=== PATIENT | male | born 1970 | race Caucasian/White ===

== ENCOUNTER 2020-04-15 21:55 | Emergency (ER) | payer SELFPAY ==
[2020-04-15 21:58] VITALS: BP 142/93; PULSE 90; RESP 18; TEMP 36.5; O2SAT 98; BMI 29.5
[2020-04-15 22:12] VITALS: BP 142/93; PULSE 94; O2SAT 99
--- NOTE | 2020-04-15 22:15 | XR_ITS ---
WS: [id number] Exam: XR ribs LT mn 3V w CXR1V [id number] Date/Time of Exam: 04/15/2020 10:15 PM Reason For Exam: trauma Findings: No acute left rib fracture or pneumothorax noted. No pulmonary or pleural reactive changes are seen. Old left ninth rib fracture noted. XR/XR ribs LT mn 3V w CXR1V [id number] IMPRESSION: 1. No acute left rib fracture or pneumothorax. 2. The lungs are bilaterally clear. Normal cardiomediastinal structures.
--- NOTE | 2020-04-15 22:15 | ED_ITS ---
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 and that his back started hurting again, ribs started hurting and his made him come in MD elicited complaint: other (Rib pain) Pertinent past history: recent trauma Onset (ago): hour(s) Timing: constant and progressively worsening Severity: moderate Similar Symptoms Previously: No Quality: stabbing and aching Radiation: none Exacerbating factors: movement and coughing/sneezing Relieving factors: immobilization Context: trauma Associated symptoms: Reports no associated symptoms; Deny abdominal pain, chills, fever(s), nausea or vomiting Review of Systems Const: Denies: fever(s), chills or body aches Eyes: Denies: change in vision or blurry vision ENMT: Denies: throat pain or nasal congestion Card: Denies: chest pain or dyspnea on exertion Resp: Denies: dyspnea, productive cough or non-productive cough GI: Denies: abdominal pain, nausea or vomiting : Reports: other (Denies any blood in the urine denies any kidney pain); Denies: difficulty urinating Musc: Reports: other (Rib pain left side); Denies: extremity pain Skin/Breast: Denies: rash Neuro: Denies: headache(s) Psych: Denies: anxiety or depression [place]/Lymph: Denies: easy bruising Physical Exam Const: COMMON NORMALS: no acute distress, average body habitus and patient oriented x3 HENMT: COMMON NORMALS: normocephalic HEAD & SCALP: normal to inspection and normocephalic FACE & SINUS: normal facial exam Eye: COMMON NORMALS: conjunctivae normal GENERAL EYE: appearance normal, both eyes and all related structures CONJUNCTIVA: Yes conjunctivae normal Neck/C-Spine: COMMON NORMALS: no JVD Chest: COMMONS NORMALS: normal inspection of the chest CHEST: Yes localized rib tenderness with anteroposterior compression (Left lower ribs no bruising swelling noted tender to the touch) Resp: COMMON NORMALS: normal respiratory effort and clear to auscultation bilaterally AUSCULTATION: clear to auscultation bilaterally Cardio: COMMON NORMALS: no JVD, regular rate and regular rhythm RATE: regular rate RHYTHM: regular rhythm GI: COMMON NORMALS: Normal to inspection, nondistended, normoactive bowel sounds present Extremity: COMMON NORMALS: normal to inspection Neuro: COMMON NORMALS: patient oriented x3 Course Vital Signs: Vital signs: Vital Signs Temperature 97.7 F 04/15/20 21:58 Pulse Rate 90 04/16/20 02:00 Respiratory Rate 16 04/16/20 02:00 Blood Pressure 126/78 04/15/20 23:56 Pulse Oximetry 95 04/16/20 02:00 MDM - Back Pain/Injury MDM Narrative: Medical decision making narrative: pt has never been a smoker and no need for f/u CT. discussed case with Dr. Kam Discharge Plan Discharge Patient Disposition: Home Clinical Impression: Contusion of rib on left side Qualifiers: Encounter type: initial encounter Qualified Code(s): S20.212A - Contusion of left front wall of thorax, initial encounter Condition: Stable Prescriptions: New tramadol 50 mg tablet 50 mg PO Q6H PRN (Reason: pain) Qty: 14 RF: 0 cyclobenzaprine 5 mg tablet 5 mg PO TID PRN (Reason: muscle spasm) Qty: 14 RF: 0 Discharge Orders: Discharge Order (Routine); Ordered 04/16/20 Ordered By: Raffi Powers Referrals: [facility] [Other] Discharge Diet: Usual diet Discharge Activity: Increase activity as tolerated Patient Instructions: Contusion in Adults (ED) Activity Restrictions/Additional Instructions: take meds as directed, use ice to help with pain. follow up with PCP if no improvement. Coding Level of Care Code ED Accountant Certified Public for Daniela Fwd Exam Comprehensive
[2020-04-15] MEDS: ketorolac 60 mg/2 mL INJ IM (22:25)
--- NOTE | 2020-04-15 22:56 | CTR_ITS ---
PROCEDURE INFORMATION: Exam: CT Chest With Contrast Exam date and time: 04/15/2020 11:03 PM Age: 49 years old Clinical indication: Injury or trauma; Other: Hit against cattle panel; Generalized; Blunt trauma (contusions or hematomas); Injury details: Left back/rib pain TECHNIQUE: Imaging protocol: Computed tomography of the chest with intravenous contrast. Radiation optimization: All CT scans at this facility use at least one of these dose optimization techniques: automated exposure control; mA and/or kV adjustment per patient size (includes targeted exams where dose is matched to clinical indication); or iterative reconstruction. Contrast material: OMNI 300; Contrast volume: 95 ml; Contrast route: INTRAVENOUS (IV); COMPARISON: No relevant prior studies available. RADIATION DOSE METRICS: Total DLP (mGy-cm): 1811.61 FINDINGS: Lungs: There is a 5 mm nodule adjacent to the fissure in the right lower lobe on image number 30. For patients at low risk (minimal or absent history of smoking and of other known risk factors), no routine follow-up is indicated. For patients at high risk (history of smoking or of other known risk factors), consider optional CT Chest at 12 months. There is mild atelectasis at the lung bases. Pleural space: Unremarkable. No pneumothorax. No pleural effusion. Heart: Unremarkable. No cardiomegaly. No pericardial effusion. Mediastinal space: There is some soft tissue density in the upper mediastinum anteriorly anterior to the aortic arch which may represent some thymic hyperplasia. Aorta: Density anterior to the root of the aorta likely represents motion artifact. Lymph nodes: There are some calcified prevascular lymph nodes in keeping with old granulomatous disease. Bones/joints: There is mild chronic appearing wedging of T7, T8 and T9. No acute fracture. Soft tissues: Unremarkable. IMPRESSION: 1. Old granulomatous disease. 2. Non-specific pulmonary nodule, follow-up according to Fleischner society guidelines if indicated. 3. Question of thymic hyperplasia. 4. No acute findings in the chest. PROCEDURE INFORMATION: Exam: CT Abdomen And Pelvis With Contrast Exam date and time: 04/15/2020 11:03 PM Age: 49 years old Clinical indication: Injury or trauma; Other: Hit against cattle panel; Generalized; Blunt trauma (contusions or hematomas); Injury details: Left back/rib pain TECHNIQUE: Imaging protocol: Computed tomography of the abdomen and pelvis with intravenous contrast. Radiation optimization: All CT scans at this facility use at least one of these dose optimization techniques: automated exposure control; mA and/or kV adjustment per patient size (includes targeted exams where dose is matched to clinical indication); or iterative reconstruction. Contrast material: OMNI 300; Contrast volume: 95 ml; Contrast route: INTRAVENOUS (IV); COMPARISON: No relevant prior studies available. RADIATION DOSE METRICS: Total DLP (mGy-cm): 1811.61 FINDINGS: Liver: There is no focal abnormality within the liver. Gallbladder and bile ducts: Normal. No calcified stones. No ductal dilation. Pancreas: The pancreas is normal. Spleen: The spleen demonstrates punctate calcifications, consistent with remote granulomatous organism exposure. Adrenal glands: The adrenal glands are normal. Kidneys and ureters: The kidneys are normal. Stomach and bowel: There is no evidence of colitis/diverticulitis. Appendix: A normal appendix is identified. Intraperitoneal space: There is no evidence of free intraperitoneal fluid. Vasculature: Unremarkable. No abdominal aortic aneurysm. Lymph nodes: There are few mildly prominent mesenteric lymph nodes but no adenopathy. Urinary bladder: Unremarkable as visualized. Reproductive: Unremarkable as visualized. Bones/joints: The lumbar spine demonstrates mild degenerative changes at multiple levels. There is mild scoliosis of the lumbar spine concave to the left. Soft tissues: Unremarkable. CT/CT chest abd pel w con* IMPRESSION: No acute findings in the abdomen or pelvis. Radiation Dose CTDIVOL = (mGy): DLP = 1811.61~1811.61 (mGy-cm)
[2020-04-15] MEDS: iohexol 300 mg/mL 100 mL Btl IV (23:30)
[2020-04-15] MEDS: ondansetron 2 mg/ML SDV 2 mL 4 MG IVP (23:51)
[2020-04-15 23:53] VITALS: RESP 16; O2SAT 96
[2020-04-15] MEDS: morphine 4 mg/mL SDV 1 mL IVP (23:53)
[2020-04-15 23:56] VITALS: BP 126/78; PULSE 92; RESP 16; O2SAT 95
[2020-04-16 02:00] VITALS: PULSE 90; RESP 16; O2SAT 95
== END 2020-04-16 06:10 | disposition home or self-care (01) ==
PROVIDERS: Emergency Provider Nurse Practitioner Family
DX: S20.212A Contusion of left front wall of thorax, initial encounter (principal); W23.0XXA Caught, crushed, jammed, or pinched between moving objects, initial encounter
CPT/HCPCS: 12345; 71101; 71260; 74177; 96372; 96374; 96375; 99282; 99283; J1885; J2270; J2405; Q9967

== ENCOUNTER → 2020-05-30 14:20 | Outpatient (BNVA) | payer SELFPAY | PROVIDERS: Visit Provider Nurse Practitioner Family | DX: L02.01 Cutaneous abscess of face (principal) | CPT/HCPCS: 80053; 85025 ==

== ENCOUNTER 2020-06-10 16:48 | Emergency (ER) | payer SELFPAY ==
[2020-06-10 17:24] VITALS: BP 128/83; PULSE 85; RESP 14; TEMP 37.1; O2SAT 97; BMI 31.3
--- NOTE | 2020-06-10 21:45 | CTR_ITS ---
PROCEDURE INFORMATION: Exam: CT Neck With Contrast Exam date and time: 06/10/2020 10:00 PM Age: 49 years old Clinical indication: Abscess, cutaneous; Patient HX: Abscess on RT side of neck x 1 month; Additional info: Neck swelling, ? abscess TECHNIQUE: Imaging protocol: Computed tomography images of the neck with intravenous contrast. Total images: 436 Radiation optimization: All CT scans at this facility use at least one of these dose optimization techniques: automated exposure control; mA and/or kV adjustment per patient size (includes targeted exams where dose is matched to clinical indication); or iterative reconstruction. Contrast material: OMNI 300; Contrast volume: 95 ml; Contrast route: INTRAVENOUS (IV); COMPARISON: No relevant prior studies available. RADIATION DOSE METRICS: Total DLP (mGy-cm): 915.25 FINDINGS: Nasopharynx: Unremarkable. Dental: Poor to non-existent dental hygiene with numerous missing teeth and numerous dental caries. Oropharynx: Unremarkable. No significant tonsillar enlargement. Hypopharynx: Unremarkable. Larynx: Unremarkable. Normal epiglottis. Retropharyngeal space: Unremarkable. Submandibular/Parotid glands: Normal. Glands are normal in size. Thyroid: Tiny 5 mm right thyroid nodule. No follow-up recommended. Lymph nodes: Marginally prominent right submandibular lymph nodes. No visible generalized lymphadenopathy or evidence of suppurative lymphadenitis. Trachea: Visualized trachea is unremarkable. Lungs: Unremarkable as visualized. Evidence of antecedent granulomatous disease. Bones/joints: Degenerative disc disease C6/C7. No visible acute osseous abnormality. Nondisplaced fracture through the angle of the right mandible at the level of the 3rd mandibular molar. Soft tissues: Right submandibular soft tissue neck mass dimensions approximately 41 mm x 23 mm x 32 mm. Heterogenous contrast enhancement. No definite evidence of organized abscess, seroma, or hematoma. Evidence of overlying soft tissue edema. CT/CT neck w con* [id number] IMPRESSION: 1. Nondisplaced fracture through the angle of the right mandible at the level of the 3rd mandibular molar. 2. Right submandibular soft tissue neck mass dimensions approximately 41 mm x 23 mm x 32 mm. No definite evidence of organized abscess, seroma, or hematoma. Evidence of overlying soft tissue edema. 3. Poor to non-existent dental hygiene with numerous missing teeth and numerous dental caries. COMMENTS: Consistent with the [employer]'s Incidental Findings Committee white paper (J Am Lolita Radiol 2015): In patients aged 35 years and older with an incidental thyroid nodule equal to or greater than 1.[address], MRI or extrathyroidal US, further evaluation with dedicated thyroid US is recommended for patients with normal life expectancy and without comorbidities. For smaller nodules without suspicious features, no further evaluation or follow up is recommended. Radiation Dose CTDIVOL = (mGy): DLP = 915.25 (mGy-cm)
[2020-06-10] MEDS: iohexol 300 mg/mL 100 mL Btl IV (22:10)
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
[2020-06-10] MEDS: vancomycin 1,250 MG/250 ML PIGGYBACK 250 MG IV (22:49)
[2020-06-10] MEDS: tetanus-dipt-pertussis 0.5 mL SDV IM (22:53)
[2020-06-10 22:58] VITALS: BP 120/70; PULSE 66; O2SAT 98
[2020-06-10 23:01] LABS: Basophils % 0.4 %; Eosinophils # 0.1 10^3/uL (0.0-0.8); Eosinophils % 1.4 %; Hematocrit 42.1 % (42.0-52.0); Hemoglobin 13.2 g/dL (11.7-16.6); Lymphocytes # 2.1 10^3/uL (0.8-4.8); Mean Corpuscular HGB Conc 31.4 g/dL (30.0-36.0); Mean Corpuscular Hemoglobin 29.5 pg (28.0-34.0); Mean Platelet Volume 9.7 fL (7.4-10.4); Monocytes # 0.9 10^3/uL (0.2-0.9); Monocytes % 9.5 %; Neutrophils # 6.18 10^3/uL (1.8-7.7); Neutrophils % 66.4 %; Nucleated Red Blood Cells % 0 %; Platelet Count 318 10^3/cmm (130-400); Red Blood Count 4.48 10^6/uL (4.1-5.3); Red Cell Distribution Width 12.7 % (12.1-15.1); White Blood Count 9.3 10^3/uL (4.0-10.0)
[2020-06-10 23:18] LABS: Alanine Aminotransferase 17 U/L (0-41); Albumin Level 3.8 g/dL (3.5-5.2); Alkaline Phosphatase 94 IU/L (40-130); Anion Gap 14.1 (5-19); Aspartate Amino Transferase 15 U/L (0-40); Blood Urea Nitrogen 13 mg/dL (6-20); Calcium 8.6 mg/dL (8.5-10.5); Carbon Dioxide 24 mmol/L (22-29); Chloride 102 mmol/L (98-107); Globulin 3.2 g/dL (1.3-4.6); Glucose 103 mg/dL (65-115); Osmolality Calculated 282 mOsm/kg (285-295); Potassium 4.1 mmol/L (3.5-5.1); Sodium 136 mmol/L (136-145); Total Bilirubin 0.2 mg/dL (0.15-1.2)
[2020-06-10 23:21] VITALS: PULSE 74; O2SAT 98
[2020-06-10] MEDS: doxycycline 100 mg Tablet 200 MG PO (23:47)
[2020-06-10] MEDS: acetaminophen 500 mg Tablet 1000 MG PO (23:47)
[2020-06-10] MEDS: ketorolac 30 mg/mL INJ 15 MG IVP (23:48)
[2020-06-11 00:29] VITALS: BP 118/74; PULSE 69; O2SAT 96
[2020-06-11 00:39] VITALS: BP 117/74; PULSE 57; O2SAT 96
== END 2020-06-11 00:45 | disposition home or self-care (01) ==
PROVIDERS: Emergency Provider Nurse Practitioner Family; PCP Nurse Practitioner
DX: L03.211 Cellulitis of face (principal); L02.01 Cutaneous abscess of face; S02.651A Fracture of angle of right mandible, initial encounter for closed fracture; I10 Essential (primary) hypertension; F17.220 Nicotine dependence, chewing tobacco, uncomplicated; Z23 Encounter for immunization; Y00.XXXA Assault by blunt object, initial encounter
CPT/HCPCS: 10060; 12345; 70491; 80053; 85025; 87070; 87075; 87205; 90471; 90715; 96365; 96375; 99283; 99291; J1885; J3370; Q9967

== ENCOUNTER 2020-10-14 13:57 | Emergency (ER) | payer SELFPAY ==
[2020-10-14 14:06] VITALS: BP 138/90; PULSE 82; RESP 18; TEMP 36.2; O2SAT 93; BMI 31.0
--- NOTE | 2020-10-14 15:48 | ED_ITS ---
Documented by User: EDER Cummings 10/15/20 07:14 HPI - Skin/Abscess/Foreign Bdy General: Chief complaint: Skin/Abscess/Foreign Body Stated complaint: Growth on Right Side of Face Time Seen by Provider: 10/14/20 15:48 Source: patient Mode of arrival: ambulatory Limitations: no limitations History of Present Illness: HPI narrative: Patient is a nice 50-year-old male who presents to ED today with a complaint of a large lesion to the right side of his face. Patient tells me approximately 6 to 8 months ago he fractured his mandible. He was supposed to follow-up with oral maxillary surgery however did not. He states following this he subsequently developed a large similar lesion that ended up being incised and drained in our ED. Provider at the time reported a large amount of purulent drainage from the lesion. Wound culture at the time did not grow anything but Gram stain showed: FEW WHITE BLOOD CELLS, MODERATE SMALL GRAM VARIABLE RODS, RARE GRAM POSITIVE COCCI IN PAIRS. Patient states following I&D and antibiotics lesion went away until now when it reappeared 2 days ago. He states lesion is tender. He has pain when he opens his mouth. MD complaint: abscess/boil Onset (ago): day(s) Tetanus up to date: yes Location: face Severity: moderate Pain Consistency: constant Relieving factors: none Exacerbating factors: other (opening mouth) Associated symptoms: Deny chills, fever(s), nausea or vomiting Review of Systems Const: Denies: fever(s), chills, body aches, fatigue or malaise Eyes: Denies: change in vision or photophobia ENMT: Reports: other (reports a feeling of swelling under chin); Denies: throat pain or odynophagia Card: Denies: chest pain Resp: Denies: dyspnea GI: Denies: abdominal pain, nausea or vomiting Musc: Reports: neck pain (abscess); Denies: back pain, extremity pain, extremity swelling, joint pain or joint swelling Skin/Breast: Reports: new lesions Neuro: Denies: headache(s) PFSH ED PFSH: Medical History History of rheumatoid arthritis Hx of essential hypertension Surgical History Hx of knee surgery right Family History Mother Cancer Diabetes Hypertension Father Cancer Diabetes Hypertension Social History Smoking and tobacco status: current every day smoker smokeless tobacco Smokeless tobacco user: chewing tobacco Second hand smoke exposure: Yes Smoking risk assessment/counseling performed?: No Alcohol intake: never Desire information about alcohol rehabilitation?: No Counseling given: No Desire information about substance/drug rehabilitation?: No Counseling given: No Adopted: No Caregiver/support person: No Lives independently: Yes Household members: none Housing: House Marital status: Legally Number of children: 1 service: No Current occupational exposures/hazards: No Physical Exam Const: COMMON NORMALS: no acute distress, patient oriented x3, no limitations and alert GENERAL APPEARANCE: cooperative ORIENTATION/CONSCIOUSNESS: Yes awake, Yes oriented to person, Yes oriented to place and Yes oriented to time HENMT: COMMON NORMALS: normocephalic, atraumatic, hearing grossly normal bilaterally, external ears normal, EAC's normal, TM's normal bilaterally, Normal external nose present, Normal nasal mucous membranes and turbinates present, moist oral mucous membranes and oropharynx normal HEAD & SCALP: normal to inspection, normocephalic and atraumatic FACE & SINUS: other (see below) FACE & SINUS IMAGES: 1. golf ball sized erythematous fluctuant abscess appearing lesion 2. surrounding induration NOSE: Normal external nose present and Normal nasal mucous membranes and turbinates present EXTERNAL EAR: Yes external ears normal EXTERNAL AUDITORY CANAL: EAC's normal TYMPANIC MEMBRANE: TM's normal bilaterally MOUTH: Normal oral and palatal mucosa present, lip normal and tongue normal TEETH & GINGIVA: Yes poor dentition THROAT: posterior oropharynx normal, tonsils normal and uvula midline Neck/C-Spine: COMMON NORMALS: full ROM GENERAL: Yes lymphadenopathy CERVICAL SPINE: Yes cervical ROM normal Resp: COMMON NORMALS: normal respiratory effort Neuro: COMMON NORMALS: patient oriented x3 SENSORIUM/ORIENTATION: Yes alert, Yes oriented to person, Yes oriented to place and Yes oriented to time Skin: NARRATIVE SKIN EXAM: see facial assessment Course Vital Signs: Vital signs: Vital Signs Temperature 97.2 F L 10/14/20 14:06 Pulse Rate 82 10/14/20 14:06 Respiratory Rate 18 10/14/20 14:06 Blood Pressure 138/90 10/14/20 14:06 Pulse Oximetry 93 10/14/20 14:06 MDM - Skin/Abscess/Foreign Bdy MDM Narrative: Medical decision making narrative: Care transferred to [facility] pending CT scan results. Plan for probable I&D. Lab Data: Labs: Lab Results 10/14/20 10/14/20 Range/Units 16:30 16:30 WBC 8.4 (4.0-10.0) 10^3/ uL RBC 5.10 (4.1-5.3) 10^6/u L Hgb 15.3 (11.7-16.6) g/dL Hct 46.1 (42.0-52.0) % MCV 90.4 (80-94) fL MCH 30.0 (28.0-34.0) pg MCHC 33.2 (30.0-36.0) g/dL RDW 12.0 L (12.1-15.1) % Plt Count 325 (130-400) 10^3/c mm MPV 9.7 (7.4-10.4) fL Neut % (Auto) 72.5 % Lymph % (Auto) 18.5 % Clarke % (Auto) 8.0 % Eos % (Auto) 0.2 % Baso % (Auto) 0.4 % Neut # (Auto) 6.09 (1.8-7.7) 10^3/u L Lymph # (Auto) 1.6 (0.8-4.8) 10^3/u L Clarke # (Auto) 0.7 (0.2-0.9) 10^3/u L Eos # (Auto) 0.0 (0.0-0.8) 10^3/u L Baso # (Auto) 0.0 (0.0-0.1) 10^3/u L Nucleated RBC % (a uto) 0 % Nucleated RBCs # 0.0 /100WBC Sodium 136 (136-145) mmol/L Potassium 4.0 (3.5-5.1) mmol/L Chloride 100 (98-107) mmol/L Carbon Dioxide 25 (22-29) mmol/L Anion Gap 15.0 (5-19) BUN 11 (6-20) mg/dL Creatinine 0.7 (0.7-1.2) mg/dL GFR Calculation 118.4 (90-130) mL/min Glucose 129 H (65-115) mg/dL Calculated Osmolal ity 283 L (285-295) mOsm/k g Calcium 8.9 (8.5-10.5) mg/dL Total Bilirubin 0.3 (0.15-1.2) mg/dL AST 15 (0-40) U/L ALT 18 (0-41) U/L Alkaline Phosphata se 82 (40-130) IU/L C-Reactive Protein 15.6 H (0.0-4.9) mg/L Total Protein 7.5 (6.6-8.7) g/dL Albumin 4.3 (3.5-5.2) g/dL Globulin 3.2 (1.3-4.6) g/dL Discharge Plan Discharge Patient Disposition: Home Clinical Impression: Mandibular mass Fracture of mandible Qualifiers: Encounter type: subsequent encounter Fracture type: closed Mandible location: angle Laterality: right Fracture healing: with nonunion Qualified Code(s): S02.651K - Fracture of angle of right mandible, subsequent encounter for fracture with nonunion Condition: Stable Prescriptions: New hydrocodone-acetaminophen 5-325 mg tablet 1 tab PO TID PRN (Reason: pain) Qty: 10 RF: 0 No Action No Known Home Medications RF: 0 Discharge Orders: Discharge ED (Routine); Ordered 10/14/20 Ordered By: Raffi Powers Referrals: Mann Martinez, [facility] [employer] [Primary Care Provider] - Discharge Diet: Usual diet Discharge Activity: Resume usual activity Patient Instructions: Lump/Mass, Opioid Safety Activity Restrictions/Additional Instructions: Follow-up with medical provider as directed. Take medications as prescribed. Return to the ER or your medical provider if condition worsens. Please read and understand discharge instructions. If any questions ask please. Hospital contact you with an appointment for the ear nose throat doc. Is very important that you keep that appointment and follow-up.. Can apply moist heat to area to help with discomfort. Coding Level of Care Code ED Electroneurodiagnostic Technician for Chg Fwd Exam Expanded Problem Focused Documented by User: ANG[facility] V[facility]la 10/14/20 17:39 HPI - Skin/Abscess/Foreign Bdy General: Chief complaint: Skin/Abscess/Foreign Body Stated complaint: Growth on Right Side of Face Time Seen by Provider: 10/14/20 15:48 PFSH ED PFSH: Medical History History of rheumatoid arthritis Hx of essential hypertension Surgical History Hx of knee surgery right Family History Mother Cancer Diabetes Hypertension Father Cancer Diabetes Hypertension Social History Smoking and tobacco status: current every day smoker smokeless tobacco Smokeless tobacco user: chewing tobacco Second hand smoke exposure: Yes Smoking risk assessment/counseling performed?: No Alcohol intake: never Desire information about alcohol rehabilitation?: No Counseling given: No Desire information about substance/drug rehabilitation?: No Counseling given: No Adopted: No Caregiver/support person: No Lives independently: Yes Household members: none Housing: House Marital status: Legally Number of children: 1 service: No Current occupational exposures/hazards: No Physical Exam HENMT: FACE & SINUS IMAGES: 1. golf ball sized erythematous fluctuant abscess appearing lesion 2. surrounding induration Course Vital Signs: Vital signs: Vital Signs Temperature 97.2 F L 10/14/20 14:06 Pulse Rate 82 10/14/20 14:06 Respiratory Rate 18 10/14/20 14:06 Blood Pressure 138/90 10/14/20 14:06 Pulse Oximetry 93 10/14/20 14:06 MDM - Skin/Abscess/Foreign Bdy MDM Narrative: Medical decision making narrative: CT shows heterogeneous mass in subcutaneous fat in the submandibular region . patient still has a fracture of mandible that is not to heal completely does not appear to be an abscess. CBC was normal, CRP was elevated consistent with possible diagnosis. Follow-up was made with the ear nose throat for removal of this mass and possible biopsy patient was strongly encouraged to keep appointment this time. Lab Data: Labs: Lab Results 10/14/20 10/14/20 Range/Units 16:30 16:30 WBC 8.4 (4.0-10.0) 10^3/ uL RBC 5.10 (4.1-5.3) 10^6/u L Hgb 15.3 (11.7-16.6) g/dL Hct 46.1 (42.0-52.0) % MCV 90.4 (80-94) fL MCH 30.0 (28.0-34.0) pg MCHC 33.2 (30.0-36.0) g/dL RDW 12.0 L (12.1-15.1) % Plt Count 325 (130-400) 10^3/c mm MPV 9.7 (7.4-10.4) fL Neut % (Auto) 72.5 % Lymph % (Auto) 18.5 % Clarke % (Auto) 8.0 % Eos % (Auto) 0.2 % Baso % (Auto) 0.4 % Neut # (Auto) 6.09 (1.8-7.7) 10^3/u L Lymph # (Auto) 1.6 (0.8-4.8) 10^3/u L Clarke # (Auto) 0.7 (0.2-0.9) 10^3/u L Eos # (Auto) 0.0 (0.0-0.8) 10^3/u L Baso # (Auto) 0.0 (0.0-0.1) 10^3/u L Nucleated RBC % (a uto) 0 % Nucleated RBCs # 0.0 /100WBC Sodium 136 (136-145) mmol/L Potassium 4.0 (3.5-5.1) mmol/L Chloride 100 (98-107) mmol/L Carbon Dioxide 25 (22-29) mmol/L Anion Gap 15.0 (5-19) BUN 11 (6-20) mg/dL Creatinine 0.7 (0.7-1.2) mg/dL GFR Calculation 118.4 (90-130) mL/min Glucose 129 H (65-115) mg/dL Calculated Osmolal ity 283 L (285-295) mOsm/k g Calcium 8.9 (8.5-10.5) mg/dL Total Bilirubin 0.3 (0.15-1.2) mg/dL AST 15 (0-40) U/L ALT 18 (0-41) U/L Alkaline Phosphata se 82 (40-130) IU/L C-Reactive Protein 15.6 H (0.0-4.9) mg/L Total Protein 7.5 (6.6-8.7) g/dL Albumin 4.3 (3.5-5.2) g/dL Globulin 3.2 (1.3-4.6) g/dL Discharge Plan Discharge Patient Disposition: Home Clinical Impression: Mandibular mass Fracture of mandible Qualifiers: Encounter type: subsequent encounter Fracture type: closed Mandible location: angle Laterality: right Fracture healing: with nonunion Qualified Code(s): S02.651K - Fracture of angle of right mandible, subsequent encounter for fracture with nonunion Condition: Stable Prescriptions: New hydrocodone-acetaminophen 5-325 mg tablet 1 tab PO TID PRN (Reason: pain) Qty: 10 RF: 0 No Action No Known Home Medications RF: 0 Discharge Orders: Discharge ED (Routine); Ordered 10/14/20 Ordered By: Raffi Powers Referrals: Mann Martinez FNP-C [Primary Care Provider] - Discharge Diet: Usual diet Discharge Activity: Resume usual activity Patient Instructions: Lump/Mass, Opioid Safety Activity Restrictions/Additional Instructions: Follow-up with medical provider as directed. Take medications as prescribed. Return to the ER or your medical provider if condition worsens. Please read and understand discharge instructions. If any questions ask please. Hospital contact you with an appointment for the ear nose throat doc. Is very important that you keep that appointment and follow-up.. Can apply moist heat to area to help with discomfort. Coding Level of Care Code ED Electroneurodiagnostic Technician for Daniela Fwd Exam Expanded Problem Focused
--- NOTE | 2020-10-14 15:56 | CTR_ITS ---
PROCEDURE INFORMATION: Exam: CT Neck With Contrast Exam date and time: 10/14/2020 4:20 PM Age: 50 years old Clinical indication: Condition or disease; Other: Large R mandibular abscess/induration TECHNIQUE: Imaging protocol: Computed tomography images of the neck with contrast. Radiation optimization: All CT scans at this facility use at least one of these dose optimization techniques: automated exposure control; mA and/or kV adjustment per patient size (includes targeted exams where dose is matched to clinical indication); or iterative reconstruction. Contrast material: OMNI 300; Contrast volume: 95 ml; Contrast route: INTRAVENOUS (IV); COMPARISON: CT neck w con* [id number] 06/10/2020 10:00 PM RADIATION DOSE METRICS: Total DLP (mGy-cm): 787.58 FINDINGS: Nasopharynx: Unremarkable. Dental: There are multiple dental caries and periapical dental abscesses. This was also present on the prior scan and has not significantly changed. Oropharynx: Unremarkable. No significant tonsillar enlargement. Hypopharynx: Unremarkable. Larynx: Unremarkable. Normal epiglottis. Retropharyngeal space: Unremarkable. Submandibular/Parotid glands: Normal. Glands are normal in size. Thyroid: Normal. No enlarged or calcified nodules. Lymph nodes: There are cervical lymph nodes measuring less than 10 mm in long axis bilaterally. No grossly enlarged lymph nodes. Trachea: Visualized trachea is unremarkable. Lungs: Unremarkable as visualized. Bones/joints: There is also a fracture of the angle of the mandible on the right with sclerosis and healing when compared to the prior scan. There is incomplete bony union. Soft tissues: There is a large soft tissue mass in the subcutaneous fat in the right submandibular region laterally. It is heterogeneous in density with areas of hypodensity. It is not fluid density. It measures 3.1 x 2.4 cm on axial images. This is similar to prior scan. Craniocaudad dimension of 3.0 cm is decreased from prior scan when it measured 4.0 cm in craniocaudad dimension. There is thickening of the overlying skin and the adjacent platysma. There are streaky inflammatory densities in the adjacent subcu fat. CT/CT neck w con* [id number] IMPRESSION: 1. 3.1 x 2.4 x 3.0 cm heterogeneous mass in the subcutaneous fat in the right submandibular region laterally. This was present on the prior scan. It is slightly smaller in size. There are adjacent inflammatory findings. The differential diagnosis includes recurrent or residual phlegmon. This has been present for at least 4 months and the possibility of underlying neoplasm cannot be excluded. 2. Extensive dental disease, unchanged from prior scan. 3. Subacute fracture of the angle of the mandible on the right with incomplete union. Radiation Dose CTDIVOL = (mGy): DLP = 787.58 (mGy-cm)
[2020-10-14] MEDS: iohexol 300 mg/mL 100 mL Btl IV (16:37)
[2020-10-14 16:40] LABS: Basophils % 0.4 %; Eosinophils % 0.2 %; Hematocrit 46.1 % (42.0-52.0); Hemoglobin 15.3 g/dL (11.7-16.6); Lymphocytes # 1.6 10^3/uL (0.8-4.8); Lymphocytes % 18.5 %; Mean Corpuscular HGB Conc 33.2 g/dL (30.0-36.0); Mean Corpuscular Volume 90.4 fL (80-94); Mean Platelet Volume 9.7 fL (7.4-10.4); Monocytes # 0.7 10^3/uL (0.2-0.9); Neutrophils # 6.09 10^3/uL (1.8-7.7); Neutrophils % 72.5 %; Nucleated Red Blood Cells % 0 %; Platelet Count 325 10^3/cmm (130-400); White Blood Count 8.4 10^3/uL (4.0-10.0)
[2020-10-14] MEDS: vancomycin 1,000 MG in sodium chloride 0.9% 250 ML 250 MG IV (17:11)
[2020-10-14 17:35] LABS: Alanine Aminotransferase 18 U/L (0-41); Albumin Level 4.3 g/dL (3.5-5.2); Alkaline Phosphatase 82 IU/L (40-130); Aspartate Amino Transferase 15 U/L (0-40); Blood Urea Nitrogen 11 mg/dL (6-20); C Reactive Protein 15.6 mg/L (0.0-4.9); Calcium 8.9 mg/dL (8.5-10.5); Carbon Dioxide 25 mmol/L (22-29); Chloride 100 mmol/L (98-107); Globulin 3.2 g/dL (1.3-4.6); Glomerular Filtration Rate 118.4 mL/min (90-130); Glucose 129 mg/dL (65-115); Osmolality Calculated 283 mOsm/kg (285-295); Sodium 136 mmol/L (136-145); Total Bilirubin 0.3 mg/dL (0.15-1.2); Total Protein 7.5 g/dL (6.6-8.7)
--- NOTE | 2020-10-15 08:42 | DCPLANNER ---
Addendum entered by Kathy Coreas 10/16/20 10:02: La from ENT, notified caseworker intake that Dr. Ashley does not see mandible fractures. dog races manager called patient and informed patient that caseworker intake was unable to make the referral to ENT, due to patient having a mandible fracture. dog races manager offered to make a follow up appointment for patient with primary care, so that primary care can make a referral to a oral maxillary surgeon. Patient stated that he has an appointment with his primary care physician on 10.17.20. Original Note: dog races manager had message to schedule a follow up appointment for patient with, Dr. Ashley, ENT. dog races manager emailed patients information to Magdalena Tovar and Samantha at [facility] General Surgery, Ears Nose and Throat. Patients information will be printed and reviewed. Clinic will call patient with appointment information.
== END 2020-10-14 17:52 | disposition home or self-care (01) ==
PROVIDERS: Physician Assistant; Emergency Provider Nurse Practitioner Family; PCP Nurse Practitioner
DX: R22.9 Localized swelling, mass and lump, unspecified (principal); S02.651A Fracture of angle of right mandible, initial encounter for closed fracture; I10 Essential (primary) hypertension; F17.220 Nicotine dependence, chewing tobacco, uncomplicated; X58.XXXA Exposure to other specified factors, initial encounter
CPT/HCPCS: 70491; 80053; 85025; 86140; 96365; 99283; J3370; J7050; Q9967

== ENCOUNTER 2020-10-28 09:31 | Outpatient (CLI) | payer SELFPAY ==
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
== END 2020-10-28 09:32 | disposition home or self-care (01) ==
PROVIDERS: PCP Nurse Practitioner; Visit Provider Specialist
DX: R68.84 Jaw pain (principal)
CPT/HCPCS: 70330

== ENCOUNTER 2020-11-26 11:04 | Outpatient (CLI) | payer SELFPAY ==
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
== END 2020-11-26 11:05 | disposition home or self-care (01) ==
LOC: RADSHAW 11:07
PROVIDERS: PCP Nurse Practitioner; Visit Provider Specialist
DX: R68.84 Jaw pain (principal); Z87.81 Personal history of (healed) traumatic fracture
CPT/HCPCS: 70336

== ENCOUNTER 2021-02-04 14:06 | Emergency (ER) | payer SELFPAY ==
[2021-02-04 14:31] VITALS: BP 126/91; PULSE 95; RESP 18; TEMP 37.2; O2SAT 97; BMI 32.5
--- NOTE | 2021-02-04 14:40 | W.ED.SKABFB ---
HPI - Skin/Abscess/Foreign Bdy General: Chief complaint: Skin/Abscess/Foreign Body Stated complaint: SORE ON FACE Time Seen by Provider: 02/04/21 14:40 History of Present Illness: HPI narrative: 50-year-old male patient comes in with tenderness and swelling to the right facial cheek. Patient appears well. Patient appears no acute distress. Patient denies any difficulty of swallowing. Review of Systems General: Reports: 10 or more systems reviewed and unremarkable except in HPI and below Skin/Breast: Reports: other (Right facial swelling.) PFSH ED PFSH: Medical History History of rheumatoid arthritis Hx of essential hypertension Surgical History Hx of knee surgery right Family History Mother Cancer Diabetes Hypertension Father Cancer Diabetes Hypertension Social History Smoking and tobacco status: current every day smoker smokeless tobacco Smokeless tobacco user: chewing tobacco Second hand smoke exposure: Yes Smoking risk assessment/counseling performed?: No Alcohol intake: never Desire information about alcohol rehabilitation?: No Counseling given: No Desire information about substance/drug rehabilitation?: No Counseling given: No Adopted: No Caregiver/support person: No Lives independently: Yes Household members: none Housing: House Marital status: Legally Number of children: 1 service: No Current occupational exposures/hazards: No Physical Exam Const: COMMON NORMALS: no acute distress and patient oriented x3 GENERAL APPEARANCE: cooperative HENMT: COMMON NORMALS: normocephalic and Normal external nose present HEAD & SCALP: normal to inspection and normocephalic NOSE: Normal external nose present MOUTH: Normal oral and palatal mucosa present Eye: GENERAL EYE: appearance normal, both eyes and all related structures Neck/C-Spine: COMMON NORMALS: full ROM Lymph: LYMPHATIC: no lymphadenopathy noted Chest: COMMONS NORMALS: normal inspection of the chest Resp: COMMON NORMALS: normal respiratory effort EFFORT & INSPECTION: Yes able to speak in complete sentences Cardio: COMMON NORMALS: regular rate and regular rhythm RATE: regular rate RHYTHM: regular rhythm GI: COMMON NORMALS: non-tender Extremity: COMMON NORMALS: normal to inspection Neuro: COMMON NORMALS: patient oriented x3 and moves all extremities Psych: COMMON NORMALS: mental status grossly normal and cooperative Skin: NARRATIVE SKIN EXAM: 5 cm area of redness to the right facial cheek. Central 2 cm area of fluctuance with swelling. Procedures Abscess I/D Site: face Side (if applicable): right Local Anesthetic: lidocaine 1% and with epi Amount of anesthesia used (mL): 1 Technique: incised with #11 blade Amount of fluid expressed (mL): 30 Irrigation: No Packing used?: none Complications: pain Course Vital Signs: Vital signs: Vital Signs Temperature 99.0 F 02/04/21 14:31 Pulse Rate 95 02/04/21 14:31 Respiratory Rate 18 02/04/21 14:31 Blood Pressure 126/91 02/04/21 14:31 Pulse Oximetry 97 02/04/21 14:31 MDM - Skin/Abscess/Foreign Bdy MDM Narrative: Medical decision making narrative: Patient comes in with a fluctuant area to the right facial cheek. On exam airway is intact. Patient is able to swallow. Posterior pharynx shows no significant asymmetry or swelling. Vital signs are normal. Differential diagnosis includes facial abscess, periapical abscess, cellulitis. Reviewed exam with patient recommended incision and drainage of site. Patient agreed to plan. Fluctuant area was opened and a large amount of purulent drainage was expressed from the area. Patient tolerated well. Patient did have some significant pain with incision and drainage. Patient did have relief after drainage. Patient will be started on doxycycline 100 mg twice a day for the next 10 days. Reviewed exam with patient with recommendations for follow-up or return to the ER. Patient reported understanding and agreed to plan. Discharge Plan Discharge Patient Disposition: Home Clinical Impression: Abscess of face Condition: Stable Prescriptions: New doxycycline monohydrate 100 mg capsule 100 mg PO BID 10 Days Qty: 20 RF: 0 No Action cephalexin [Keflex] 750 mg capsule 750 mg PO Q12H Qty: 20 RF: 0 chlorhexidine gluconate [Peridex] 0.12 % mouthwash 15 ml buccal BID Qty: 118 RF: 5 Discharge Orders: Discharge ED (Routine); Ordered 02/04/21 Ordered By: Ryan Soares Referrals: Mann Martinez, [employer] [Primary Care Provider] - Discharge Diet: Usual diet Discharge Activity: Increase activity as tolerated Patient Instructions: Abscess Incision and Drainage (ED), Opioid Safety Activity Restrictions/Additional Instructions: Use a warm moist pack to the area. Take antibiotic as directed. Drink plenty of water with medication. Use acetaminophen and ibuprofen for pain. Follow-up with primary care as needed. Return to the ED for new concerns. Coding Level of Care Code ED Ux Engineer for Daniela Calle
[2021-02-04] MEDS: doxycycline 100 mg Tablet PO (14:54)
--- NOTE | 2021-02-04 15:25 | PC.NURSE ---
Standby assist with Fany LAB DIRECTOR, patient tolerates procedure without complaint. Clean dry dressing in place after procedure.
[2021-02-04 15:27] VITALS: BP 107/72; PULSE 72; RESP 16; TEMP 36.4; O2SAT 97
== END 2021-02-04 15:32 | disposition home or self-care (01) ==
PROVIDERS: Emergency Provider Nurse Practitioner Family; PCP Nurse Practitioner
DX: L02.01 Cutaneous abscess of face (principal); I10 Essential (primary) hypertension; F17.220 Nicotine dependence, chewing tobacco, uncomplicated
CPT/HCPCS: 10060; 99283

== ENCOUNTER 2021-04-02 17:41 | Emergency (ER) | payer SELFPAY ==
[2021-04-02 18:47] VITALS: BP 124/86; PULSE 71; RESP 16; TEMP 36.5; O2SAT 98; BMI 33.2
--- NOTE | 2021-04-02 20:12 | ED_ITS ---
HPI - Animal Bite General: Chief Complaint: Animal Bite Stated Complaint: BEE STING/HEAD: WEAK, NAUSEA Time Seen by Provider: 04/02/21 19:56 History of Present Illness: HPI narrative: Patient is a 50-year-old male comes to the ED after a wasp sting. Wasp sting occurred this afternoon. He said a red wasp stung his left congregation of head. Denies any past allergic reactions to stings and has never had any anaphylactic reaction in his past. Since staying he develo ped some diarrhea, nausea and a feeling of generalized weakness. Denies any lip, tongue swelling, throat swelling, shortness of breath or vomiting. Associated symptoms: Deny chills, fever(s) or headache(s) Review of Systems Const: Reports: fatigue; Denies: fever(s) or chills Eyes: Denies: change in vision or eye discomfort ENMT: Denies: throat pain, odynophagia, nasal discharge or nasal congestion Card: Denies: chest pain, palpitations, edema, swelling of feet/ankles, dyspnea on exertion or orthopnea Resp: Denies: dyspnea, productive cough or non-productive cough GI: Reports: nausea and diarrhea; Denies: abdominal pain, vomiting, constipation or hematochezia : Denies: flank pain, difficulty urinating, dysuria or hematuria Musc: Denies: neck pain, back pain or extremity swelling Skin/Breast: Reports: other (wasp sting to left side of head.); Denies: rash or new lesions Neuro: Denies: headache(s), numbness in extremities or weakness in extremities All/Imm: Denies: throat swelling, tongue swelling or facial swelling PFSH ED PFSH: Medical History History of rheumatoid arthritis Hx of essential hypertension Surgical History Hx of knee surgery right Family History Mother Cancer Diabetes Hypertension Father Cancer Diabetes Hypertension Social History Smoking and tobacco status: current every day smoker smokeless tobacco Smokeless tobacco user: chewing tobacco Second hand smoke exposure: Yes Smoking risk assessment/counseling performed?: No Alcohol intake: never Desire information about alcohol rehabilitation?: No Counseling given: No Desire information about substance/drug rehabilitation?: No Counseling given: No Adopted: No Caregiver/support person: No Lives independently: Yes Household members: none Housing: House Marital status: Legally Number of children: 1 service: No Current occupational exposures/hazards: No Physical Exam Const: COMMON NORMALS: no acute distress, patient oriented x3, healthy appearing and alert GENERAL APPEARANCE: cooperative and comfortable HENMT: COMMON NORMALS: normocephalic HEAD & SCALP: normocephalic and other (Left temporal-small nodule superior to ear from sting.-no erythema) MOUTH: Normal oral and palatal mucosa present, lip normal and tongue normal THROAT: posterior oropharynx normal and uvula midline Eye: COMMON NORMALS: Equal, round and reactive pupils present PUPIL: Yes Equal, round and reactive pupils present Neck/C-Spine: COMMON NORMALS: supple GENERAL: Yes normal visual inspection Resp: COMMON NORMALS: normal respiratory effort, No retractions, No use of accessory muscles and clear to auscultation bilaterally AUSCULTATION: clear to auscultation bilaterally Cardio: COMMON NORMALS: regular rate, regular rhythm, S1 normal heart sound present, S2 normal heart sound present, No gallops present (Cardio), No clicks present (Cardio), No murmurs present (Cardio) and Peripheral pulses 2+ throughout RATE: regular rate RHYTHM: regular rhythm HEART SOUNDS: S1 normal heart sound present and S2 normal heart sound present PERIPHERAL PULSES: Peripheral pulses 2+ throughout GI: COMMON NORMALS: Normal to inspection, nondistended, normoactive bowel sounds present, Soft to palpation, non-tender and no masses PALPATION: Yes Soft to palpation : COMMON NORMALS: Yes no CVA tenderness BLADDER/KIDNEY EXAM: Yes no CVA tenderness Back/Pelvis: COMMON NORMALS: no CVA tenderness Extremity: COMMON NORMALS: normal to inspection Neuro: COMMON NORMALS: patient oriented x3 and moves all extremities SENSORIUM/ORIENTATION: Yes alert Skin: GENERAL SKIN EXAM: dry skin Course Vital Signs: Vital signs: Vital Signs Temperature 97.7 F 04/02/21 18:47 Pulse Rate 69 04/02/21 20:56 Respiratory Rate 18 04/02/21 21:39 Blood Pressure 118/80 04/02/21 20:56 Pulse Oximetry 95 04/02/21 20:56 MDM - Animal Bite MDM Narrative: Medical decision making narrative: Patient is a 50-year-old male comes to the ED after a wasp sting on left side of head. After staying he has had some nausea, diarrhea and generalized weakness/fatigue. Denies any history of any anaphylactic reactions or any allergic reactions. Denies any trouble breathing. Vitals are stable. Patient appears in no acute distress or pain. He has no lip, tongue swelling or shortness of breath. Lungs are clear to auscultation bilaterally. Patient was given a dose of IM Solu-Medrol and 50 mg of Benadryl. Patient says he is feeling a lot better and he was watched for over an hour while here in the ED. Patient was stable for discharge home and sent home with a prescription for prednisone. Return to ED precautions given. Follow-up with PCP in 5 to 7 days for reevaluation. Patient understood and agree with plan. Discharge Plan Discharge Patient Disposition: Home Clinical Impression: Sting, wasp Qualifiers: Encounter type: initial encounter Injury intent: accidental or unintentional Qualified Code(s): T63.461A - Toxic effect of venom of wasps, accidental (unintentional), initial encounter Condition: Stable Prescriptions: New prednisone 20 mg tablet 20 mg PO BID 5 Days Qty: 10 RF: 0 No Action cephalexin [Keflex] 750 mg capsule 750 mg PO Q12H Qty: 20 RF: 0 chlorhexidine gluconate [Peridex] 0.12 % mouthwash 15 ml buccal BID Qty: 118 RF: 5 Discharge Orders: Discharge ED (Routine); Ordered 04/02/21 Ordered By: Wilfredo Samayoa Referrals: Mann Martinez, [employer] MANAGER-C [Primary Care Provider] - Discharge Diet: Regular Discharge Activity: Resume usual activity Patient Instructions: Insect Bite or Sting (ED), General Allergic Reaction (ED) Activity Restrictions/Additional Instructions: Follow-up with medical provider as directed in 7 to 10 days for reevaluation. Take medications as prescribed. You can also take some Benadryl nightly to help with any allergic reaction symptoms as well. Return to the ER or your medical p rovider if condition worsens. Please read and understand discharge instructions. Thank you for choosing [facility] for your healthcare needs today. Please realize this is an emergency room and that we are providing you with a medical screening exam and this may not be complete and all inclusive of all the testing and or work up that you may need to determine your ailment or severity of your illness. It is very important that you follow up as instructed or that you return to the Emergency Department should you have concerns or if your condition changes or worsens in any way. Coding Level of Care Code ED Educational Psychology Professor for Daniela Fwdeena Exam Comprehensive
[2021-04-02] MEDS: diphenhydrAMINE 50 mg Capsule PO (20:20)
[2021-04-02 20:56] VITALS: BP 118/80; PULSE 69; RESP 18; O2SAT 95
[2021-04-02 21:39] VITALS: RESP 18
== END 2021-04-02 21:40 | disposition home or self-care (01) ==
PROVIDERS: Emergency Provider Physician Assistant; PCP Nurse Practitioner
DX: T63.461A Toxic effect of venom of wasps, accidental (unintentional), initial encounter (principal); I10 Essential (primary) hypertension; F17.220 Nicotine dependence, chewing tobacco, uncomplicated
CPT/HCPCS: 96372; 99283; J2930; Q0163

== ENCOUNTER 2021-07-26 16:02 | Emergency (ER) | payer SELFPAY ==
[2021-07-26 17:14] VITALS: BP 120/81; PULSE 82; RESP 18; TEMP 36.7; O2SAT 97; BMI 36.9
--- NOTE | 2021-07-26 20:32 | ED_ITS ---
HPI - General Adult General: Chief complaint: General Medical Stated complaint: fall, right arm pain Time Seen by Provider: 07/26/21 20:32 History of Present Illness: 50-year-old male patient comes in with right elbow pain. 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 Patient reports slipping and falling this morning but did not injure his elbow but this evening the pain and discomfort has started to the right elbow with movement. Patient denies any chronic medical problems. Patient appears well. Onset (ago): hour(s) Location: upper extremity Radiation: non-radiation Severity: mild Relieving factors: rest Exacerbating factors: movement Associated symptoms: Reports no associated symptoms Review of Systems Musc: Reports: joint pain (Right elbow) PFS ED PFSH: Medical History History of rheumatoid arthritis Hx of essential hypertension Surgical History Hx of knee surgery right Family History Mother Cancer Diabetes Hypertension Father Cancer Diabetes Hypertension Social History Smoking and tobacco status: current every day smoker smokeless tobacco Smokeless tobacco user: chewing tobacco Second hand smoke exposure: Yes Smoking risk assessment/counseling performed?: No Alcohol intake: never Desire information about alcohol rehabilitation?: No Counseling given: No Desire information about substance/drug rehabilitation?: No Counseling given: No Adopted: No Caregiver/support person: No Lives independently: Yes Household members: none Housing: House Marital status: Legally Number of children: 1 service: No Current occupational exposures/hazards: No Physical Exam Const: COMMON NORMALS: alert Neck/C-Spine: COMMON NORMALS: full ROM Resp: COMMON NORMALS: normal respiratory effort Cardio: COMMON NORMALS: Peripheral pulses 2+ throughout PERIPHERAL PULSES: Peripheral pulses 2+ throughout Extremity: RIGHT UPPER EXTREMITY: Yes elbow joint (Tenderness is noted to the lateral epicondyle, mild swelling) Right elbow: Yes inspection, Yes palpation, Yes ROM and Yes neurovascular exam Neuro: SENSORIUM/ORIENTATION: Yes alert Psych: COMMON NORMALS: cooperative Skin: COMMON NORMALS: no rashes or lesions noted GENERAL SKIN EXAM: no rashes or lesions noted Course Vital Signs: Vital signs: Vital Signs Temperature 98.1 F 02/05/22 17:14 Pulse Rate 82 07/26/21 17:14 Respiratory Rate 18 07/26/21 17:14 Blood Pressure 120/81 07/26/21 17:14 Pulse Oximetry 97 07/26/21 17:14 MDM - General Adult Medical Decision Making 50-year-old male patient comes in with pain to the right elbow. Patient reports slipping this morning and catching himself but did not think he injured his elbow. Since then patient has had increasing pain and stiffness to the right elbow. On exam patient has mild decreased extension of the elbow but otherwise normal range of motion. Distal sensation and pulses are intact. Patient does have tenderness over the lateral epicondyles. Differential diagnosis includes elbow sprain, tendinitis, epicondylitis. Suspect more of a tendinitis due to patient's repetitive work versus actual injury. No need for x-ray was noted. We will start patient on some prednisone 60 mg today and then 40 mg daily for the next 5 days. Patient will be given some meloxicam to help further with pain and inflammation. Patient was also recommended to use acetaminophen throughout the day for further pain control. Patient reported understanding of care plan need for follow-up or return to the ER. Discharge Plan Discharge Patient Disposition: Home Clinical Impression: Right elbow tendinitis Condition: Stable Prescriptions: New meloxicam 15 mg tablet 15 mg PO DAILY Qty: 14 0RF prednisone 20 mg tablet 20 mg PO BID 5 Days Qty: 10 0RF Discontinued cephalexin [Keflex] 750 mg capsule 750 mg PO Q12H Qty: 20 0RF chlorhexidine gluconate [Peridex] 0.12 % mouthwash 15 ml buccal BID Qty: 118 5RF Discharge Orders: Discharge ED (Routine); Ordered 07/26/21 Ordered By: Ryan Soares Referrals: Mann Martinez, ENVIRONMENTAL HEALTH AND SAFETY MANAGER-C [Primary Care Provider] - Discharge Diet: Usual diet Discharge Activity: Increase activity as tolerated Patient Instructions: Musculoskeletal Pain (ED) Activity Restrictions/Additional Instructions: Home and rest. Activity as tolerated. Use medication as prescribed. Use acetaminophen 1000 mg every 8 hours for further pain relief. Drink plenty of water with prednisone and meloxicam. Follow-up with primary care for further instruction. Return to the ER for new concerns. Coding Level of Care Code ED Senior Stock Plan Administrator for Daniela Calle
[2021-07-26] MEDS: acetaminophen 500 mg Tablet 1000 MG PO (20:48)
[2021-07-26] MEDS: predniSONE 20 mg Tablet 60 MG PO (20:48)
[2021-07-26 21:01] VITALS: BP 126/88; PULSE 88; RESP 16; O2SAT 98
== END 2021-07-26 21:02 | disposition home or self-care (01) ==
PROVIDERS: Emergency Provider Nurse Practitioner Family; PCP Nurse Practitioner
DX: M77.8 Other enthesopathies, not elsewhere classified (principal); I10 Essential (primary) hypertension; F17.220 Nicotine dependence, chewing tobacco, uncomplicated
CPT/HCPCS: 99283; J7512

== ENCOUNTER 2021-11-13 14:54 | Emergency (ER) | payer SELFPAY ==
[2021-11-13 15:10] VITALS: BP 122/68; PULSE 91; RESP 16; TEMP 36.8; O2SAT 95
--- NOTE | 2021-11-13 16:11 | W.ED.EXTPRO ---
HPI - Extremity Problem General: Chief complaint: Extremity Injury, Upper Stated complaint: Right Should Pain Time Seen by Provider: 11/13/21 15:39 History of Present Illness: Patient is a 31-year-old male comes to the ED with pain on the right shoulder. Symptoms started 4 days ago. He denies any injury or trauma but says he woke up with pain. Most of his pain is in his right shoulder blade that radiates down his arm. He rates the pain a 9 out of 10. Pain worsens with right arm movement. Associated symptoms: Deny chest pain, fever(s) or rash Review of Systems Const: Denies: fever(s), chills or fatigue Eyes: Denies: change in vision or eye discomfort ENMT: Denies: throat pain, odynophagia, nasal discharge or nasal congestion Card: Denies: chest pain, palpitations, edema, swelling of feet/ankles, dyspnea on exertion or orthopnea Resp: Denies: dyspnea, productive cough or non-productive cough GI: Denies: abdominal pain, nausea, vomiting, diarrhea, constipation or hematochezia : Denies: flank pain, difficulty urinating, dysuria or hematuria Musc: Reports: extremity pain (right shoulder); Denies: neck pain, back pain or extremity swelling Skin/Breast: Denies: rash or new lesions Neuro: Denies: headache(s), numbness in extremities or weakness in extremities PFSH ED PFSH: Medical History History of rheumatoid arthritis Hx of essential hypertension Surgical History Hx of knee surgery right Family History Mother Cancer Diabetes Hypertension Father Cancer Diabetes Hypertension Social History Smoking and tobacco status: current every day smoker smokeless tobacco Smokeless tobacco user: chewing tobacco Second hand smoke exposure: Yes Smoking risk assessment/counseling performed?: No Alcohol intake: never Desire information about alcohol rehabilitation?: No Counseling given: No Desire information about substance/drug rehabilitation?: No Counseling given: No Adopted: No Caregiver/support person: No Lives independently: Yes Household members: none Housing: House Marital status: Legally Number of children: 1 service: No Current occupational exposures/hazards: No Physical Exam Const: COMMON NORMALS: patient oriented x3 and alert GENERAL APPEARANCE: cooperative HENMT: COMMON NORMALS: normocephalic HEAD & SCALP: normocephalic MOUTH: Normal oral and palatal mucosa present THROAT: posterior oropharynx normal and uvula midline Neck/C-Spine: COMMON NORMALS: supple GENERAL: Yes normal visual inspection Resp: COMMON NORMALS: normal respiratory effort, No retractions, No use of accessory muscles and clear to auscultation bilaterally AUSCULTATION: clear to auscultation bilaterally Cardio: COMMON NORMALS: regular rate, regular rhythm, S1 normal heart sound present, S2 normal heart sound present, No gallops present (Cardio), No clicks present (Cardio), No murmurs present (Cardio) and Peripheral pulses 2+ throughout RATE: regular rate RHYTHM: regular rhythm HEART SOUNDS: S1 normal heart sound present and S2 normal heart sound present PERIPHERAL PULSES: Peripheral pulses 2+ throughout GI: COMMON NORMALS: Normal to inspection, nondistended, normoactive bowel sounds present, Soft to palpation, non-tender and no masses PALPATION: Yes Soft to palpation : COMMON NORMALS: Yes no CVA tenderness BLADDER/KIDNEY EXAM: Yes no CVA tenderness Back/Pelvis: COMMON NORMALS: no CVA tenderness Extremity: COMMON NORMALS: normal to inspection NARRATIVE EXTREMITY EXAM: Muscular tenderness over right subscapular region. Neuro: COMMON NORMALS: patient oriented x3 and moves all extremities SENSORIUM/ORIENTATION: Yes alert Skin: GENERAL SKIN EXAM: dry skin Course Vital Signs: Vital signs: Vital Signs Temperature 98.3 F 11/13/21 15:10 Pulse Rate 72 11/13/21 17:03 Respiratory Rate 18 11/13/21 17:03 Blood Pressure 122/78 11/13/21 17:03 Pulse Oximetry 95 11/13/21 17:03 MDM - Extremity (Nontraumatic) Medical Decision Making Patient is a 51-year-old male comes to the ED with right shoulder and arm pain. Denies any injury or trauma to cause pain. Vitals are stable. Exam of patient shows some right subscapular muscle tenderness. Neurovascular intact to right arm. The rest of exam is benign. Patient was diagnosed with muscle strain of his right scapular region and was discharged home with a prescription for a muscle relaxer and Celebrex for pain. Follow-up with PCP in the next week for reevaluation. Return to ED precautions given. Patient understood and agreed with plan. Discharge Plan Discharge Patient Disposition: Home Clinical Impression: Muscle strain of right scapular region Qualifiers: Encounter type: initial encounter Qualified Code(s): S46.911A - Strain of unspecified muscle, fascia and tendon at shoulder and upper arm level, right arm, initial encounter Condition: Stable Prescriptions: New cyclobenzaprine 10 mg tablet 10 mg PO BID PRN (Reason: muscle spasms and pain) Qty: 20 0RF Celebrex 100 mg capsule 100 mg PO BID PRN (Reason: pain) Qty: 30 0RF No Action meloxicam 15 mg tablet 15 mg PO DAILY Qty: 14 0RF Discharge Orders: Discharge ED (Routine); Ordered 11/13/21 Ordered By: Wilfredo Samayoa Referrals: Mann Martinez FNP-C [Primary Care Provider] - Discharge Diet: Regular Discharge Activity: Increase activity as tolerated Patient Instructions: Shoulder Sprain (ED), Shoulder Pain (ED) Activity Restrictions/Additional Instructions: Follow-up with medical provider as directed. Wear shoulder sling for the next couple days to allow for healing. Make sure to remove arm from sling multiple times a day to perform some range of motion exercises to prevent frozen shoulder. Take medications as prescribed. return to the ER or your medical provider if condition worsens. Please read and understand discharge instructions. Thank you for choosing [facility] for your healthcare needs today. Please realize this is an emergency room and that we are providing you with a medical screening exam and this may not be complete and all inclusive of all the testing and or work up that you may need to determine your ailment or severity of your illness. It is very important that you follow up as instructed or that you return to the Emergency Department should you have concerns or if your condition changes or worsens in any way. Coding Level of Care Code ED Piano Regulator for Daniela Calle Exam Comprehensive
[2021-11-13] MEDS: HYDROcodone-acetaminophen 7.5-325 mg Tablet 1 TAB PO (16:14)
[2021-11-13] MEDS: orphenadrine 30 mg/mL Inj 2 mL 60 MG IM (16:15)
[2021-11-13 17:03] VITALS: BP 122/78; PULSE 72; RESP 18; O2SAT 95
== END 2021-11-13 17:04 | disposition home or self-care (01) ==
PROVIDERS: Emergency Provider Physician Assistant; PCP Nurse Practitioner
DX: S46.911A Strain of unspecified muscle, fascia and tendon at shoulder and upper arm level, right arm, initial encounter (principal); X58.XXXA Exposure to other specified factors, initial encounter
CPT/HCPCS: 96372; 99283; J2360

== ENCOUNTER → 2021-11-19 14:18 | Outpatient (BNVA) | payer SELFPAY | PROVIDERS: PCP Nurse Practitioner; Visit Provider Nurse Practitioner | DX: M54.2 Cervicalgia (principal); M25.511 Pain in right shoulder | CPT/HCPCS: 72040; 73030 ==

== ENCOUNTER 2021-12-15 20:18 | Emergency (ER) | payer SELFPAY ==
--- NOTE | 2021-12-15 20:22 | CTR_ITS ---
PROCEDURE INFORMATION: Exam: CT Head Without Contrast Exam date and time: 12/15/2021 8:55 PM Age: 51 years old Clinical indication: Injury or trauma; Blunt trauma (contusions or hematomas); Patient HX: Witnessed fall. Patient fell backwards onto floor at home. Patient non verbal with eyes closed during exam. TECHNIQUE: Imaging protocol: Computed tomography of the head without contrast. Radiation optimization: All CT scans at this facility use at least one of these dose optimization techniques: automated exposure control; mA and/or kV adjustment per patient size (includes targeted exams where dose is matched to clinical indication); or iterative reconstruction. COMPARISON: MR TMJ wo con [id number] 11/26/2020 11:52 AM RADIATION DOSE METRICS: Total DLP (mGy-cm): 971.59 FINDINGS: Brain: Mild prominence of the sulci consistent with diffuse atrophy. No mass effect or midline shift. Mild periventricular and subcortical white matter low-attenuation consistent with chronic small vessel ischemic changes. No evidence of acute intracranial hemorrhage. Cerebral ventricles: Ventricular prominence proportional to sulci. No hydrocephalus. Paranasal sinuses: No significant or acute abnormality. No air-fluid levels. Mastoid air cells: No acute abnormality. No significant mastoid effusion. Bones/joints: No acute osseous abnormality. No acute fracture. Soft tissues: No significant soft tissue abnormalities. CT/CT head wo con* [id number] IMPRESSION: Mild atrophy and chronic/remote ischemic changes without evidence of superimposed acute infarct, hemorrhage, mass-effect or acute intracranial injury.
--- NOTE | 2021-12-15 20:22 | CTR_ITS ---
PROCEDURE INFORMATION: Exam: CT Cervical Spine Without Contrast Exam date and time: 12/15/2021 8:58 PM Age: 51 years old Clinical indication: Injury or trauma; Blunt trauma; Patient HX: Witnessed fall. Patient fell backwards onto floor at home. Patient non verbal with eyes closed during exam. TECHNIQUE: Imaging protocol: Computed tomography of the cervical spine without contrast. Radiation optimization: All CT scans at this facility use at least one of these dose optimization techniques: automated exposure control; mA and/or kV adjustment per patient size (includes targeted exams where dose is matched to clinical indication); or iterative reconstruction. COMPARISON: CR XR cervical spine 3V* [id number] 11/19/2021 2:19 PM RADIATION DOSE METRICS: Total DLP (mGy-cm): 730.62 FINDINGS: Bones/joints: Cervical vertebra appear intact with normal vertebral body height. Grossly normal cervical alignment. Multilevel spondylosis with degenerative endplate spurring. Discs/Spinal canal/Neural foramina: Multilevel disc space narrowing and posterior disc osteophyte complexes, particularly at C5-C6 and C6-C7. Moderate lower cervical spinal stenosis and moderate to severe bilateral C6-C7 foraminal stenosis. Lungs: No significant or acute abnormality of the visualized lung apices. Soft tissues: No significant soft tissue abnormalities. CT/CT cervical spin wo con* [id number] IMPRESSION: 1. No evidence of acute fracture or subluxation. 2. Cervical spondylosis and degenerative changes as described.
--- NOTE | 2021-12-15 20:23 | ECG_ITS ---
[facility] Test Date: 2021-12-15 Pat Name: Ari Silvestre Department: Room: Gender: Male Paper [employer] Supervisor: : 1970 Requested By: Parrish Hinton Order Number: [id number] Charles MD: Alfred Corrales M.D. Measurements Intervals [place]ler Rate: 81 P: 23 NV: 169 QRS: -40 QRSD: 115 T: 38 QT: 368 QTc: 428 Interpretive Statements SINUS RHYTHM LEFT AXIS DEVIATION [QRS AXIS < -30] INCOMPLETE RIGHT BUNDLE BRANCH BLOCK [90+ ms QRS DURATION, TERMINAL R IN V1/V2, 40+ ms S IN I/aVL/V4/V5/V6] POSSIBLE LATERAL MYOCARDIAL INFARCTION , OF INDETERMINATE AGE [30 ms Q WAVE IN I/aVL/V5/V6] TYPE 2 BRUGADA PATTERN (NON-DIAGNOSTIC) [COVED/SADDLEBACK ST ELEVATION > 0.1mV IN 2 OF V1-3] Compared to ECG 07/02/2014 11:58:15;Left-axis deviation now present Incomplete right bundle-branch block now present.ST (T wave) deviation now present Sinus bradycardia no longer present.Myocardial infarct finding still present Electronically Signed On 12-16-2021 20:05:08 CDT by Alfred Corrales M.D. [email or web address]
[2021-12-15 20:26] LABS: Glucose Point of Care 90 mg/dL (70-110)
[2021-12-15 20:29] VITALS: BP 160/113; PULSE 83; RESP 19; TEMP 36.4; O2SAT 96; BMI 33.4
[2021-12-15 20:32] VITALS: BP 156/108; PULSE 84; RESP 18; O2SAT 96
--- NOTE | 2021-12-15 20:36 | XRR_ITS ---
PROCEDURE INFORMATION: Exam: XR Chest Exam date and time: 12/15/2021 8:41 PM Age: 51 years old Clinical indication: Other: Syncope TECHNIQUE: Imaging protocol: Radiologic exam of the chest. Views: 1 view. COMPARISON: CR (CHEST, ) 12/15/2021 8:25 PM FINDINGS: Lungs: Poor inspiratory effort with some crowding of pulmonary markings and possible accentuation of the apparent heart size. Mild peribronchial thickening and/or mild perihilar linear markings consistent with bronchitis and/or viral pneumonitis and/or reactive airway disease and/or atypical pulmonary interstitial edema. Pleural spaces: Unremarkable. No pleural effusion. No pneumothorax. Heart/Mediastinum: See Lungs finding. Bones/joints: Unremarkable. Other findings: Patient rotation to the right. XR/XR chest 1V portable [id number] IMPRESSION: 1. Poor inspiratory effort with some crowding of pulmonary markings and possible accentuation of the apparent heart size. 2. Mild peribronchial thickening and/or mild perihilar linear markings consistent with bronchitis and/or viral pneumonitis and/or reactive airway disease and/or atypical pulmonary interstitial edema.
[2021-12-15 20:41] LABS: Basophils % 0.4 %; Eosinophils # 0.1 10^3/uL (0.0-0.8); Hematocrit 46.9 % (42.0-52.0); Hemoglobin 16.1 g/dL (11.7-16.6); Lymphocytes # 1.8 10^3/uL (0.8-4.8); Lymphocytes % 25.3 %; Mean Corpuscular HGB Conc 34.3 g/dL (30.0-36.0); Mean Corpuscular Hemoglobin 31.1 pg (28.0-34.0); Mean Corpuscular Volume 90.5 fl (80-94); Mean Platelet Volume 9.7 fL (7.4-10.4); Monocytes # 0.7 10^3/uL (0.2-0.9); Monocytes % 9.9 %; Neutrophils # 4.46 10^3/uL (1.8-7.7); Nucleated Red Blood Cells % 0 %; Platelet Count 300 10^3/cmm (130-400); Red Blood Count 5.18 10^6/uL (4.1-5.3); Red Cell Distribution Width 12.5 % (12.1-15.1); White Blood Count 7.1 10^3/uL (4.0-10.0)
[2021-12-15 21:02] VITALS: BP 149/106; PULSE 74; RESP 17; O2SAT 97
--- NOTE | 2021-12-15 21:04 | ED_ITS ---
HPI - Syncope General: Chief Complaint: Syncope Stated Complaint: heat exhaustion Time Seen by Provider: 12/15/21 20:22 Source: patient Mode of arrival: ambulatory Limitations: no limitations History of Present Illness: 51-year-old male has a history of alcoholism that states he was cooking chicken today in a hot kitchen and had a syncopal event. He had passed out and fell backwards and hit his head hard. He had a prolonged loss consciousness after that as well. Denies any chest pain does have a headache currently. No vomiting no diarrhea. No other injuries noted. Associated symptoms: Reports headache(s); Deny abdominal pain, fever(s) or nausea Review of Systems Const: Denies: fever(s), chills, body aches or change in appetite Eyes: Denies: blurry vision or eye discomfort ENMT: Denies: throat pain or dental pain Card: Reports: syncope Resp: Denies: dyspnea GI: Denies: abdominal pain, nausea, vomiting or diarrhea : Denies: dysuria Musc: Denies: neck pain or back pain Skin/Breast: Denies: rash Neuro: Reports: headache(s) Psych: Denies: depression Rolando/Lymph: Denies: easy bruising All/Imm: Denies: urticaria PFSH ED PFSH: Medical History History of rheumatoid arthritis Hx of essential hypertension Surgical History Hx of knee surgery right Family History Mother Cancer Diabetes Hypertension Father Cancer Diabetes Hypertension Social History Smoking and tobacco status: never smoked Second hand smoke exposure: Yes Smoking risk assessment/counseling performed?: No Alcohol intake: never Desire information about alcohol rehabilitation?: No Counseling given: No Desire information about substance/drug rehabilitation?: No Counseling given: No Adopted: No Caregiver/support person: No Lives independently: Yes Household members: none Housing: House Marital status: Legally Number of children: 1 service: No Current occupational exposures/hazards: No Physical Exam 2 Const: COMMON NORMALS: patient oriented x3 and healthy appearing HENMT: COMMON NORMALS: normocephalic and atraumatic HEAD & SCALP: normocephalic and atraumatic Eye: COMMON NORMALS: Equal, round and reactive pupils present and EOMs intact bilaterally PUPIL: Yes Equal, round and reactive pupils present Neck/C-Spine: COMMON NORMALS: full ROM and supple Chest: COMMONS NORMALS: normal inspection of the chest and normal palpation of entire chest wall Resp: COMMON NORMALS: normal respiratory effort, No retractions, No use of accessory muscles and clear to auscultation bilaterally AUSCULTATION: clear to auscultation bilaterally Cardio: COMMON NORMALS: regular rate, regular rhythm and No murmurs present (Cardio) RATE: regular rate RHYTHM: regular rhythm GI: COMMON NORMALS: Normal to inspection, nondistended, normoactive bowel sounds present, Soft to palpation, non-tender and no masses PALPATION: Yes Soft to palpation Extremity: COMMON NORMALS: normal to inspection and full ROM Neuro: COMMON NORMALS: patient oriented x3, moves all extremities and no focal motor deficits Psych: COMMON NORMALS: mental status grossly normal, Normal thought process present and cooperative THOUGHT PROCESS: Normal thought process present Skin: COMMON NORMALS: no rashes or lesions noted and no wounds GENERAL SKIN EXAM: no rashes or lesions noted Course Vital Signs: Vital signs: Vital Signs Temperature 97.6 F 12/15/21 20:29 Pulse Rate 70 12/15/21 21:15 Respiratory Rate 16 12/15/21 21:15 Blood Pressure 154/98 12/15/21 21:15 Pulse Oximetry 100 12/15/21 21:15 MDM - Syncope Medical Decision Making Patient presents here with closed head injury from a syncopal event he has been well-appearing here troponins are normal he is awake and alert and feels much improved likely vagal episode he is stable for discharge he is to follow-up with PCP and return if worsening. Lab Data : 12/15/21 20:25 12/15/21 20:25 Radiology Impressions Cervical Spine CT 12/15/21 20:22 IMPRESSION: 1. No evidence of acute fracture or subluxation. 2. Cervical spondylosis and degenerative changes as described. Head CT 12/15/21 20:22 IMPRESSION: Mild atrophy and chronic/remote ischemic changes without evidence of superimposed acute infarct, hemorrhage, mass-effect or acute intracranial injury. Chest X-Ray 12/15/21 20:36 IMPRESSION: 1. Poor inspiratory effort with some crowding of pulmonary markings and possible accentuation of the apparent heart size. 2. Mild peribronchial thickening and/or mild perihilar linear markings consistent with bronchitis and/or viral pneumonitis and/or reactive airway disease and/or atypical pulmonary interstitial edema. Laboratory Results WBC 7.1 10^3/uL (4.0-10.0) 12/15/21 20:25 RBC 5.18 10^6/uL (4.1-5.3) 12/15/21 20:25 Hgb 16.1 g/dL (11.7-16.6) 12/15/21 20:25 Hct 46.9 % (42.0-52.0) 12/15/21 20: MCV 90.5 fl (80-94) 12/15/21 20: MCH 31.1 pg (28.0-34.0) 12/15/21 20: MCHC 34.3 g/dL (30.0-36.0) 12/15/21 20: RDW 12.5 % (12.1-15.1) 12/15/21 20: Plt Count 300 10^3/cmm (130-400) 12/15/21 20:25 MPV 9.7 fL (7.4-10.4) 12/15/21 20:25 Neut % (Auto) 63.0 % 12/15/21 20:25 Lymph % (Auto) 25.3 % 12/15/21 20:25 Elbert % (Auto) 9.9 % 12/15/21 20:25 Eos % (Auto) 1.0 % 12/15/21 20: Baso % (Auto) 0.4 % 12/15/21 20:25 Neut # (Auto) 4.46 10^3/uL (1.8-7.7) 12/15/21 20: Lymph # (Auto) 1.8 10^3/uL (0.8-4.8) 12/15/21 20:25 Elbert # (Auto) 0.7 10^3/uL (0.2-0.9) 12/15/21 20:25 Eos # (Auto) 0.1 10^3/uL (0.0-0.8) 12/15/21 20:25 Baso # (Auto) 0.0 10^3/uL (0.0-0.1) 12/15/21 20:25 Nucleated RBC % (auto) 0 % 12/15/21 20:25 Nucleated RBCs # 0.0 /100WBC 12/15/21 20:25 PT 12.20 SECONDS (12.1-14.9) 12/15/21 20:25 INR 0.88 (0.8-1.2) 12/15/21 20:25 Sodium 135 mmol/L (136-145) L 12/15/21 20:25 Potassium 3.9 mmol/L (3.5-5.1) 12/15/21 20:25 Chloride 97 mmol/L (98-107) L 12/15/21 20:25 Carbon Dioxide 24 mmol/L (22-29) 12/15/21 20:25 Anion Gap 17.9 (5-19) 12/15/21 20:25 BUN 18 mg/dL (6-20) 12/15/21 20:25 Creatinine 1.2 mg/dL (0.7-1.2) 12/15/21 20:25 GFR Calculation 63.3 mL/min (90-130) L 12/15/21 20:25 Glucose 97 mg/dL (65-115) 12/15/21 20:25 POC Glucose 90 mg/dL (70-110) 12/15/21 20:23 Calculated Osmolality 282 mOsm/kg (285-295) L 12/15/21 20:25 Calcium 9.2 mg/dL (8.5-10.5) 12/15/21 20:25 Total Bilirubin 0.3 mg/dL (0.15-1.2) 12/15/21 20:25 AST 26 U/L (0-40) 12/15/21 20:25 ALT 32 U/L (0-41) 12/15/21 20:25 Alkaline Phosphatase 62 IU/L (40-130) 12/15/21 20:25 Troponin T Baseline 6 ng/L (0-15) 12/15/21 20:25 Troponin T 120 Minute 6.10 ng/L (0-15) 12/15/21 22:30 Delta Troponin T 0.10 ABS# (0-10) 12/15/21 22:30 Total Protein 7.8 g/dL (6.6-8.7) 12/15/21 20:25 Albumin 4.8 g/dL (3.5-5.2) 12/15/21 20:25 Globulin 3.0 g/dL (1.3-4.6) 12/15/21 20:25 Ethyl Alcohol 73 mg/dL (0-10) H 12/15/21 20:25 EKG Data EKG 1: I personally reviewed and interpreted this EKG as follows: EKG interpretation date: 12/15/21 EKG interpretation time: 20:24 Interpretation: nsr hr [address] or t wave abnormalities qrs 115 qtc 405 EKG 2: I personally reviewed and interpreted this EKG as follows: EKG interpretation date: 12/15/21 EKG interpretation time: 22:36 Interpretation: nsr hr [address] or t wave abnormalities qrs 112 qtc 423 Discharge Plan Discharge Patient Disposition: Home Clinical Impression: CHI (closed head injury) Syncope Qualifiers: Syncope type: unspecified Qualified Code(s): R55 - Syncope and collapse Condition: Stable Prescriptions: No Action prednisone 20 mg tablet 20 mg PO BID Qty: 10 0RF Rx Instructions: hold Celebrex while taking cyclobenzaprine 10 mg tablet 10 mg PO BID PRN (Reason: muscle spasms and pain) Qty: 20 0RF meloxicam 15 mg tablet 15 mg PO DAILY Qty: 14 0RF Celebrex 100 mg capsule 100 mg PO BID PRN (Reason: pain) Qty: 30 0RF Discharge Orders: Discharge ED (Routine); Ordered 12/15/21 Ordered By: Parrish Hinton Referrals: Mann Martinez JUDGE'S CLERK-C [Primary Care Provider] - 1-3 days Discharge Diet: Advance as tolerated Discharge Activity: Resume usual activity Patient Instructions: Syncope (ED) Coding Level of Care Code ED Proc[employer]ment [employer] for Chg Fwd Exam Comprehensive
[2021-12-15 21:05] LABS: Troponin(5th) Baseline 6 ng/L (0-15)
[2021-12-15 21:06] LABS: Alanine Aminotransferase 32 U/L (0-41); Albumin Level 4.8 g/dL (3.5-5.2); Alcohol Level 73 mg/dL (0-10); Alkaline Phosphatase 62 IU/L (40-130); Anion Gap 17.9 (5-19); Aspartate Amino Transferase 26 U/L (0-40); Blood Urea Nitrogen 18 mg/dL (6-20); Calcium 9.2 mg/dL (8.5-10.5); Carbon Dioxide 24 mmol/L (22-29); Chloride 97 mmol/L (98-107); Glomerular Filtration Rate 63.3 mL/min (90-130); Glucose 97 mg/dL (65-115); Osmolality Calculated 282 mOsm/kg (285-295); Potassium 3.9 mmol/L (3.5-5.1); Sodium 135 mmol/L (136-145); Total Bilirubin 0.3 mg/dL (0.15-1.2); Total Protein 7.8 g/dL (6.6-8.7)
[2021-12-15 21:15] VITALS: BP 154/98; PULSE 70; RESP 16; O2SAT 100
[2021-12-15 21:40] LABS: INR 0.88 (0.8-1.2)
--- NOTE | 2021-12-15 22:23 | ECG_ITS ---
[facility] Test Date: 2021-12-15 Pat Name: Ari Silvestre Department: Room: Gender: Male [employer]: : 1970 Requested By: Parrish Hinton Order Number: [id number] Charles MD: Jagdish Wen M.D. Measurements Intervals [place] Rate: 72 P: 28 MS: 167 QRS: -39 QRSD: 112 T: 46 QT: 398 QTc: 438 Interpretive Statements SINUS RHYTHM LEFT AXIS DEVIATION [QRS AXIS < -30] PATTERN CONSISTENT WITH PULMONARY DISEASE INCOMPLETE RIGHT BUNDLE BRANCH BLOCK [90+ ms QRS DURATION, TERMINAL R IN V1/V2, 40+ ms S IN I/aVL/V4/V5/V6] Compared to ECG 07/02/2014 11:58:15 Left-axis deviation now present Incomplete right bundle-branch block now present Sinus bradycardia no longer present Myocardial infarct finding no longer present Electronically Signed On 12-15-2021 23:25:54 CDT by Jagdish Wen M.D. [email or web address]
[2021-12-15] MEDS: labetalol 5 mg/mL SDV 20mL 10 MG IVP (22:51)
[2021-12-15 23:45] VITALS: BP 146/109; PULSE 90; RESP 16; O2SAT 95
[2021-12-15 23:53] VITALS: BP 146/109; PULSE 90; RESP 16; O2SAT 95
== END 2021-12-15 23:56 | disposition home or self-care (01) ==
PROVIDERS: Emergency Provider Emergency Medicine; PCP Nurse Practitioner
DX: R55 Syncope and collapse (principal); S09.8XXA Other specified injuries of head, initial encounter; I10 Essential (primary) hypertension; Z77.22 Contact with and (suspected) exposure to environmental tobacco smoke (acute) (chronic); W18.30XA Fall on same level, unspecified, initial encounter
CPT/HCPCS: 36416; 70450; 71045; 72125; 80053; 80307; 82962; 84484; 85025; 85610; 93005; 96374; 99285; J3490

== ENCOUNTER 2022-06-06 10:51 | Emergency (ER) | payer SELFPAY ==
[2022-06-06 10:56] VITALS: BP 149/95; PULSE 78; RESP 16; TEMP 36.7; O2SAT 98; BMI 36.1
--- NOTE | 2022-06-06 11:06 | ED_ITS ---
HPI - Extremity Problem General: Chief complaint: Extremity Problem,Nontraumatic Stated complaint: R leg injury Time Seen by Provider: 06/06/22 11:06 History of Present Illness: Mr. Silvestre is a 51-year-old gentleman presenting to the emergency department due to nontraumatic extremity pain. He reports generalized malaise yesterday but does not recall any specific injury to his right lower extremity. Around 730 he began having a stabbing throbbing pain and looked down and noticed a bulge and bruise. Since that time has had continued pain. Symptoms are worse with ambulation and palpation. Moderate to severe in intensity. No other specific changes in health, exacerbating, or alleviating factors identified. Onset (ago): hour(s) Pain Consistency: constant Location: right and lower extremity Quality: aching and sharp Radiation: none Relieving factors: nothing Exacerbating factors: weight bearing and walking Associated symptoms: Reports no associated symptoms Review of Systems General: Reports: 10 or more systems reviewed and unremarkable except in HPI and below PFSH ED PFSH: Medical History History of rheumatoid arthritis Hx of essential hypertension Surgical History Hx of knee surgery right Family History Mother Cancer Diabetes Hypertension Father Cancer Diabetes Hypertension Social History Smoking and tobacco status: never smoked Second hand smoke exposure: Yes Smoking risk assessment/counseling performed?: No Alcohol intake: never Desire information about alcohol rehabilitation?: No Counseling given: No Desire information about substance/drug rehabilitation?: No Counseling given: No Adopted: No Caregiver/support person: No Lives independently: Yes Household members: none Housing: House Marital status: Legally Number of children: 1 service: No Current occupational exposures/hazards: No Physical Exam Const: COMMON NORMALS: alert GENERAL APPEARANCE: cooperative and well developed HENMT: COMMON NORMALS: normocephalic and atraumatic HEAD & SCALP: normocephalic and atraumatic Eye: COMMON NORMALS: conjunctivae normal CONJUNCTIVA: Yes conjunctivae normal SCLERA: sclerae normal Neck/C-Spine: COMMON NORMALS: supple GENERAL: Yes trachea midline Resp: COMMON NORMALS: normal respiratory effort EFFORT & INSPECTION: Yes able to speak in complete sentences Cardio: COMMON NORMALS: regular rate and regular rhythm RATE: regular rate RHYTHM: regular rhythm GI: COMMON NORMALS: Soft to palpation PALPATION: Yes Soft to palpation and No Tenderness to palpation present (GI) PERCUSSION: normal to percussion Extremity: NARRATIVE EXTREMITY EXAM: Right lower extremity focal ecchymosis approximately 4 cm x 4 cm, no evidence of surrounding cellulitis, likely hematoma, significantly tender to palpation wi thout active bleeding. GENERAL: Yes normal exam except as noted and No edema Neuro: COMMON NORMALS: moves all extremities SENSORIUM/ORIENTATION: Yes alert and No Orientation impaired Psych: COMMON NORMALS: mental status grossly normal and Normal thought process present THOUGHT PROCESS: Normal thought process present Course Vital Signs: Vital signs: Vital Signs Temperature 98.1 F 06/06/22 10:56 Pulse Rate 69 06/06/22 12:29 Respiratory Rate 16 06/06/22 12:29 Blood Pressure 148/78 06/06/22 12:29 Pulse Oximetry 97 06/06/22 12:29 Oxygen Delivery Me thod 06/06/22 12:15 MDM - Extremity (Nontraumatic) Medical Decision Making 51-year-old gentleman presenting with nontraumatic area of pain and ecchymosis. Exam as above. Given physical exam, history, vital signs imaging felt to be appropriate. X- rays negative for acute bony injury. Soft tissue ultrasound consistent with hematoma. There is no evidence of overlying infection and patient is afebrile/not tachycardic here. Most likely patient had some sort of mild trauma which he did not recall resulting in hematoma. The results of ED evaluation were discussed with the patient including prescriptions and/or symptomatic cares (if applicable) including appropriate and responsible use, followup plan, and return precautions. The patient verbalized understanding and felt safe for discharge. Medical Records I reviewed the patient's medical records. Lab Data I reviewed the patient's lab results. Radiology Impressions Soft Tissue Ultrasound 06/06/22 11:12 IMPRESSION: There is a 2.5 x 2.4 x 1.5 cm avascular fairly well-defined mass over the medial aspect of the ankle. Ultrasound characteristics are most consistent with a hematoma. Correlate clinically. Tibia/Fibula X-Ray 12/17/22 11:12 IMPRESSION: Mild degenerative disease in the knee and ankle. No acute abnormality. Discharge Plan Discharge Patient Disposition: Home Clinical Impression: Hematoma Condition: Stable Prescriptions: No Action prednisone 20 mg tablet 20 mg PO BID Qty: 10 0RF Rx Instructions: hold Celebrex while taking cyclobenzaprine 10 mg tablet 10 mg PO BID PRN (Reason: muscle spasms and pain) Qty: 20 0RF meloxicam 15 mg tablet 15 mg PO DAILY Qty: 14 0RF Celebrex 100 mg capsule 100 mg PO BID PRN (Reason: pain) Qty: 30 0RF Discharge Orders: Discharge ED (Routine); Ordered 06/06/22 Ordered By: Jayson Cedillo Referrals: Mann Martinez, MEDICAL DETAILIST-C [Primary Care Provider] - Discharge Diet: Usual diet Discharge Activity: Increase activity as tolerated Patient Instructions: Hematoma (ED) Activity Restrictions/Additional Instructions: Thank you for visiting the emergency department. You were seen and evaluated for leg swelling. You were found to have a hematoma which is a collection of blood under the skin. This just requires supportive care at this time. You may use [id number] medications such as acetaminophen and ibuprofen for pain however please do not exceed the daily recommended dosage as listed on the packaging and please keep in mind that many namebrand medications contain the same active ingredients. Please avoid these medications if previously instructed to do so by another physician due to other underlying medical condition. Elevation and ice may also help. Please follow-up with your primary care provider. Return to the emergency department for anything that you are concerned about and feel needs emergency department evaluation. Coding Level of Care Code ED Hose Mender for Daniela Calle Exam Comprehensive
[2022-06-06 11:08] VITALS: BP 151/85; PULSE 74; RESP 16; O2SAT 95
--- NOTE | 2022-06-06 11:12 | XRR_ITS ---
PROCEDURE INFORMATION: Exam: XR Right Tibia and Fibula Exam date and time: 06/06/2022 11:15 AM Age: 51 years old Clinical indication: Pain; Lower leg; Prior surgery; Surgery date: 6+ months; Surgery type: Fracture of right leg in mid ; Additional info: Nontraumatic rll pain TECHNIQUE: Imaging protocol: Radiologic exam of the Right tibia and fibula. Views: 2 views. COMPARISON: No relevant prior studies available. FINDINGS: Bones/joints: There are old healed fractures through the shafts of the tibia and fibula. No recent fracture or other acute bone or joint abnormality. Mild degenerative changes are present in the knee and ankle with tiny osteophytes. Soft tissues: Normal. XR/XR tibia fibula RT 2V [id number] IMPRESSION: Mild degenerative disease in the knee and ankle. No acute abnormality.
--- NOTE | 2022-06-06 11:12 | USR_ITS ---
PROCEDURE INFORMATION: Exam: US Left Non-Vascular Joint or Other Extremity Structure Exam date and time: 06/06/2022 11:35 AM Age: 51 years old Clinical indication: Symptoms: Raised area with purple appearance on RT med ankle. Painful to touch. ; Additional info: R lower leg, nontraumatic ? hematoma TECHNIQUE: Imaging protocol: Left US joint or other nonvascular extremity structure or structures. Real-time ultrasound with image documentation. Limited study. Exam focused on the lower extremity in the region of clinical interest. COMPARISON: No relevant prior studies available. FINDINGS: Soft tissues: Ultrasound scanning through the area of concern over the medial aspect of the ankle demonstrates a 2.5 x 2.4 x 1.5 cm heterogeneous fairly well-defined ovoid avascular mass. This has ultrasound characteristics which are most likely of a hematoma. No other fluid collections are seen. US/US soft tissue/extremity [id number] IMPRESSION: There is a 2.5 x 2.4 x 1.5 cm avascular fairly well-defined mass over the medial aspect of the ankle. Ultrasound characteristics are most consistent with a hematoma. Correlate clinically.
[2022-06-06] MEDS: oxyCODONE 5 mg IR Tab/Cap PO (11:30)
[2022-06-06 11:31] VITALS: BP 151/85; PULSE 76; RESP 16; O2SAT 99
[2022-06-06 12:15] VITALS: PULSE 72; RESP 16; O2SAT 97
[2022-06-06 12:29] VITALS: BP 148/78; PULSE 69; RESP 16; O2SAT 97
== END 2022-06-06 12:34 | disposition home or self-care (01) ==
PROVIDERS: Emergency Provider Emergency Medicine; PCP Nurse Practitioner
DX: S80.11XA Contusion of right lower leg, initial encounter (principal); X58.XXXA Exposure to other specified factors, initial encounter; I10 Essential (primary) hypertension; Z77.22 Contact with and (suspected) exposure to environmental tobacco smoke (acute) (chronic)
CPT/HCPCS: 73590; 76882; 99284

== ENCOUNTER 2022-10-12 11:06 | Outpatient (CLI) | payer OTHER, SELFPAY ==
--- NOTE | 2022-10-12 11:33 | XR_ITS ---
WS: [email or web address] Exam: XR hand RT 2V [id number] Date/Time of Exam: 10/12/2022 11:37 AM Reason For Exam: PAIN No fracture or dislocation. There are mild degenerative changes in the IP joints. Periarticular calci fications are noted along the PIP joints of the third and fourth digits. Subcortical cyst formation a nd erosions are seen in the distal aspect of the proximal phalanges of the second third and fourth fi ngers. Degenerative changes also noted in the third and fourth MP joints. Soft tissue swelling of the third and fourth fingers. No foreign bodies noted. XR/XR hand RT 2V [id number] IMPRESSION: 1. No fracture or dislocation. 2. Degenerative changes as discussed above.
--- NOTE | 2022-10-12 11:33 | XR_ITS ---
WS: [email or web address] Exam: XR lumbar spine 2-3V* [id number] Date/Time of Exam: 10/12/2022 11:37 AM Reason For Exam: PAIN Comparison 01/24/2013. No acute fracture or dislocation. Mild spondylosis. Disc spaces are preserved. Facet DJD at L3-4, L4- 5 and L5-S1. No significant scoliosis. XR/XR lumbar spine 2-3V* [id number] IMPRESSION: 1. Mild degenerative changes. No fracture or malalignment.
--- NOTE | 2022-10-12 11:33 | XR_ITS ---
WS: [email or web address] Exam: XR hand LT 2V [id number] Date/Time of Exam: 10/12/2022 11:37 AM Reason For Exam: PAIN No acute fracture or dislocation. Mild degenerative changes in the IP joints. Periarticular calcifica tions along the PIP joints of the third and fourth fingers. No soft tissue foreign bodies are seen. XR/XR hand LT 2V [id number] IMPRESSION: 1. Degenerative changes in the IP joints as noted above. 2. No fracture or other significant finding.
--- NOTE | 2022-10-12 11:33 | XR_ITS ---
WS: [email or web address] Exam: XR wrist RT 2V [id number] Date/Time of Exam: 10/12/2022 11:37 AM Reason For Exam: PAIN No acute fracture or dislocation. Moderate degenerative narrowing of the radiocarpal joint. Normal so ft tissues. XR/XR wrist RT 2V [id number] IMPRESSION: 1. Moderate degenerative change. No fracture or dislocation.
--- NOTE | 2022-10-12 11:33 | XR_ITS ---
WS: [email or web address] Exam: XR wrist LT 2V [id number] Date/Time of Exam: 10/12/2022 11:37 AM Reason For Exam: PAIN No fracture or dislocation noted. Normal soft tissues. Mild DJD at the radiocarpal joint. XR/XR wrist LT 2V [id number] IMPRESSION: 1. Mild DJD. No fracture or other significant finding.
--- NOTE | 2022-10-12 11:33 | XR_ITS ---
WS: [email or web address] Exam: XR elbow RT 2V [id number] Date/Time of Exam: 10/12/2022 11:37 AM Reason For Exam: PAIN No fracture or dislocation. No joint effusion noted. Degenerative changes at the ulnar trochlea artic ulation. Spurring along the medial aspect of the radial head. XR/XR elbow RT 2V [id number] IMPRESSION: 1. Degenerative changes of the elbow as detailed above. 2. No fracture or joint effusion.
--- NOTE | 2022-10-12 11:33 | XR_ITS ---
WS: [email or web address] Exam: XR knee LT 1-2V [id number] Date/Time of Exam: 10/12/2022 11:37 AM Reason For Exam: PAIN No fracture or dislocation. No joint effusion. The joint compartments are relatively well maintained. XR/XR knee LT 1-2V 12503 IMPRESSION: 1. Negative left knee.
== END 2022-10-12 11:07 | disposition home or self-care (01) ==
LOC: RAD 11:09
PROVIDERS: PCP Nurse Practitioner; Visit Provider Dermatology
DX: Z02.71 Encounter for disability determination (principal)
CPT/HCPCS: 72100; 73070; 73100; 73120; 73560

== ENCOUNTER → 2023-01-04 15:07 | Outpatient (BNVA) | payer MEDICAID, SELFPAY | PROVIDERS: PCP Nurse Practitioner; Visit Provider Nurse Practitioner Family | DX: M79.671 Pain in right foot (principal); M79.672 Pain in left foot; Z13.6 Encounter for screening for cardiovascular disorders; R73.9 Hyperglycemia, unspecified; M25.571 Pain in right ankle and joints of right foot; B35.1 Tinea unguium; G62.9 Polyneuropathy, unspecified | CPT/HCPCS: 80053; 80061; 83036; 84443; 85025 ==

== ENCOUNTER → 2023-01-27 11:06 | Outpatient (BNVA) | payer MEDICAID, SELFPAY | PROVIDERS: PCP Nurse Practitioner; Visit Provider Nurse Practitioner Family | DX: M54.2 Cervicalgia (principal); G89.29 Other chronic pain; R20.0 Anesthesia of skin; R20.2 Paresthesia of skin | CPT/HCPCS: 72040 ==

== ENCOUNTER → 2023-03-10 13:38 | Outpatient (BNVA) | payer MEDICAID, SELFPAY | PROVIDERS: PCP Nurse Practitioner; Visit Provider Nurse Practitioner Family | DX: M25.562 Pain in left knee (principal); M25.571 Pain in right ankle and joints of right foot; M15.9 Polyosteoarthritis, unspecified | CPT/HCPCS: 73562 ==

== ENCOUNTER → 2023-03-22 14:39 | Outpatient (BNVA) | payer MEDICAID, SELFPAY | PROVIDERS: PCP Nurse Practitioner; Referring Provider Nurse Practitioner Family; Visit Provider Podiatrist Foot & Ankle Surgery | DX: M79.671 Pain in right foot; M79.672 Pain in left foot; M76.71 Peroneal tendinitis, right leg; M21.611 Bunion of right foot; M21.41 Flat foot [pes planus] (acquired), right foot | CPT/HCPCS: 73630 ==

== ENCOUNTER → 2023-04-29 10:37 | Outpatient (BNVA) | payer MEDICAID, SELFPAY | PROVIDERS: PCP Nurse Practitioner; Visit Provider Physician Assistant | DX: M25.562 Pain in left knee | CPT/HCPCS: 73560; 73565 ==

== ENCOUNTER → 2023-07-01 10:42 | Outpatient (BNVA) | payer MEDICAID, SELFPAY | PROVIDERS: PCP Nurse Practitioner; Visit Provider Podiatrist Foot & Ankle Surgery | DX: L60.3 Nail dystrophy; M76.71 Peroneal tendinitis, right leg; M21.41 Flat foot [pes planus] (acquired), right foot; M21.42 Flat foot [pes planus] (acquired), left foot; M21.611 Bunion of right foot; G89.29 Other chronic pain | CPT/HCPCS: 73610 ==

== ENCOUNTER 2023-07-21 06:55 | Outpatient (CLI) | payer MEDICAID, SELFPAY ==
--- NOTE | 2023-07-21 07:15 | MR_ITS ---
WS: [email or web address] MRI LEFT KNEE NONCONTRAST TECHNIQUE: Axial PD, coronal PD fat sat, coronal PD, sagittal PD, and sagittal PD fat-sat images obta ined. CLINICAL INFORMATION: knee pain COMPARISON: None. FINDINGS: Distal quadriceps and patella tendons are intact. Small suprapatellar effusion. Elongated lobulated p opliteal cyst. Moderate chondromalacia patella worse involving the medial patella facet. Prepatellar soft tissue edema. Chondral fissuring in the medial patellar facet. Medial and lateral patellar retin aculum appear intact. Grade IV chondromalacia medial joint compartment with subchondral edema. Advanced joint space narrow ing medial joint compartment. Normal lateral meniscus. Complex tear involving the posterior horn medi al meniscus extending to the meniscal root and peripheral articular surface. Peripheral extrusion of the medial meniscus. Medial and lateral collateral ligaments are intact. Normal popliteus. IMPRESSION: 1. Normal ACL and PCL. 2. Complex tear involving the posterior horn medial meniscus with peripheral extrusion. 3. Moderate to advanced degenerative narrowing medial joint compartment with grade IV chondromalacia and subchondral edema. 4. Chondral fissuring medial patellar facet with grade III chondromalacia. 5. Small suprapatellar effusion. 6. Lobulated popliteal cyst measuring 1.6 x 5.5 cm in maximum dimension. Outbridge grading:
== END 2023-07-21 06:56 | disposition home or self-care (01) ==
LOC: RAD 06:55
PROVIDERS: PCP Nurse Practitioner; Visit Provider Physician Assistant
DX: S83.232A Complex tear of medial meniscus, current injury, left knee, initial encounter (principal); X58.XXXA Exposure to other specified factors, initial encounter; M17.12 Unilateral primary osteoarthritis, left knee; M22.42 Chondromalacia patellae, left knee; M25.462 Effusion, left knee; M71.22 Synovial cyst of popliteal space [Baker], left knee
CPT/HCPCS: 73721

== ENCOUNTER → 2023-08-18 16:26 | Outpatient (BNVA) | payer MEDICAID, SELFPAY | PROVIDERS: PCP Nurse Practitioner; Visit Provider Nurse Practitioner | DX: E78.5 Hyperlipidemia, unspecified (principal); N18.2 Chronic kidney disease, stage 2 (mild); R73.9 Hyperglycemia, unspecified | CPT/HCPCS: 80053; 80061; 81000; 82306; 82607; 83036; 84443 ==

== ENCOUNTER → 2023-08-31 14:22 | Outpatient (BNVA) | payer MEDICAID, SELFPAY | PROVIDERS: PCP Nurse Practitioner; Visit Provider Podiatrist Foot & Ankle Surgery | DX: Z01.818 Encounter for other preprocedural examination (principal); R73.03 Prediabetes; M25.371 Other instability, right ankle; N18.2 Chronic kidney disease, stage 2 (mild) | CPT/HCPCS: 36415; 81003; 83036; 85025 ==

== ENCOUNTER 2023-09-03 08:39 | Outpatient (CLI) | payer MEDICAID, SELFPAY ==
--- NOTE | 2023-09-03 08:44 | CT_ITS ---
WS: [email or web address] CT LEFT KNEE, NONCONTRAST CLIFF TECHNIQUE: Noncontrast CT of the LEFT knee to include the LEFT hip and ankle. CLINICAL INFORMATION: M17.12 - Unilateral primary osteoarthritis, left knee DLP: [address] scans at [facility] use at least one of these dose optimization techniques: automated e xposure control; mA and/or kV adjustment per patient size (includes targeted exams where dose is matc hed to clinical indication); or iterative reconstruction. FINDINGS: Moderate tricompartment arthritis LEFT knee. Small suprapatellar effusion. Prepatellar soft tissue ed rober. Small lobulated popliteal cyst. Mild degenerative narrowing both hips. Sigmoid diverticulosis. IMPRESSION: Images obtained for preoperative purposes.
== END 2023-09-03 08:40 | disposition home or self-care (01) ==
LOC: RAD 08:40
PROVIDERS: PCP Nurse Practitioner; Visit Provider Student in an Organized Health Care Education/Training Program
DX: M17.12 Unilateral primary osteoarthritis, left knee (principal)
CPT/HCPCS: 73700

== ENCOUNTER 2023-09-13 19:20 | Observation (INO) | payer MEDICAID, SELFPAY ==
[2023-09-13] VITALS (11 sets, daily range): BP systolic 105–144; BP diastolic 75–106; PULSE 72–95; RESP 16–18; TEMP 36.4–36.8; O2SAT 92–99; BMI 39.9
[2023-09-13] MEDS: scopolamine 1.5 Patch 1 PATCH TRANSDERMA (12:54)
[2023-09-13] MEDS: lactated ringers 500 ML IV (13:04)
[2023-09-13] MEDS: acetaminophen 1,000 MG/100 ML PIGGYBACK 400 MG IV ×2 (13:06→20:24)
[2023-09-13] MEDS: ketorolac 30 mg/mL INJ IVP (13:12)
[2023-09-13 13:49] LABS: Basophils % 0.4 %; Eosinophils % 0.5 %; Hematocrit 48.6 % (37-53); Lymphocytes # 1.1 10^3/uL (0.8-4.8); Lymphocytes % 19.4 %; Mean Corpuscular HGB Conc 33.5 g/dL (30-55); Mean Corpuscular Hemoglobin 30.4 pg (27-33); Mean Corpuscular Volume 90.7 fl (82-101); Mean Platelet Volume 9.9 fL (7.4-10.4); Monocytes # 0.5 10^3/uL (0.2-0.9); Monocytes % 8.2 %; Neutrophils # 4.06 10^3/uL (1.8-7.7); Neutrophils % 71.1 %; Nucleated Red Blood Cells % 0 %; Platelet Count 283 10^3/cmm (157-399); Red Blood Count 5.36 10^6/uL (3.85-5.65); Red Cell Distribution Width 12.4 % (12.1-15.1); White Blood Count 5.71 10^3/uL (3.29-11.43)
[2023-09-13] MEDS: sodium chloride 0.9% 1,000 ML 30 ML IV (14:10)
[2023-09-13 14:14] LABS: Anion Gap 18.7 (5-19); Blood Urea Nitrogen 14 mg/dL (6-20); Calcium 9.8 mg/dL (8.5-10.5); Carbon Dioxide 23 mmol/L (22-29); Chloride 103 mmol/L (98-107); Creatinine Clr Calc Pharmacy 121.3131; Glomerular Filtration Rate 87.9 mL/min (90-130); Glucose 83 mg/dL (65-115); Osmolality Calculated 290 mOsm/kg (285-295); Potassium 4.7 mmol/L (3.5-5.1); Sodium 140 mmol/L (136-145)
--- NOTE | 2023-09-13 15:02 | P.ANESASSM_ITS ---
Pre-Anesthetic Assessment Height/Weight: Height 1.75 m Weight 122.47 kg Temp Pulse Resp BP Pulse Ox O2 Del Method 98.3 F 95 18 128/106 99 Room Air 09/13/23 12:42 09/13/23 12:42 09/13/23 12:42 09/13/23 12:54 09/13/23 12:42 09/13/23 13:16 Operation Date: 09/13/23 13:55 Proposed Procedures p Rubens Robot Total Knee Arthroplasty(Left) - [place], Familial anesthetic complications: None Was Beta Kirti taken within 24 hours: N/A Was Clonidine taken within 24 hours: N/A Last intake: Intake Last Liquid Date 09/12/23 Last Liquid Time 21:00 Last Solid Date 09/12/23 Last Solid Time 21:00 Social No alcohol and No tobacco Exam alert, oriented x 3, clear to auscultation bilaterally and regular rate & rhythm Airway Mallampati: Class IV Chronic Renal Insufficiency Metabolic Diabetes Mellitus and Morbid Obesity Musc/sk Rheumatoid Arthritis Anesthetic Plan ASA status: 3 Anesthesia: Regional (specify below) Other: Spinal + Adductor Risk of > 500 ml blood loss (7ml/kg in children): Yes, adequate IV access and fluids planned Medications/Allergies Home Medications Medication Instructions Recorded Confirmed Last Taken Type Hinged Knee Brace #1 ea 04/29/23 08/31/23 Unknown Rx dapagliflozin propanediol 10 mg 10 mg PO QAM #30 tabs 08/18/23 09/10/23 09/09/23 Rx tablet (Farxiga) gabapentin 600 mg tablet 600 mg PO TID #90 tabs 08/18/23 09/10/23 09/11/23 Rx pravastatin 20 mg tablet 20 mg PO DAILY #30 tabs 08/18/23 09/10/23 09/11/23 Rx AFO to right #1 ea 08/31/23 08/31/23 Unknown Rx meloxicam 15 mg tablet 15 mg PO DAILY 09/03/23 09/10/23 09/08/23 History Allergies Allergy/AdvReac Type Severity Reaction Status Date / Time Sulfa (Sulfonamide Allergy Unknown Verified 09/10/23 08:44 Antibiotics) Current Medications Generic Name Dose Route Start Last Admin Trade Name Freq PRN Reason Stop Dose Admin Sodium Chloride 1,000 mls @ 30 mls/hr 09/13/23 12:45 09/13/23 14:10 Sodium Chloride 0.9% IV 09/14/23 12:44 30 mls/hr .Q24H BRUCE Administration PFSH Anesthesia Medical History CKD (chronic kidney disease) stage 2, GFR 60-89 ml/min Cervical neuralgia Hyperlipemia Prediabetes Hx of essential hypertension History of rheumatoid arthritis Surgical History Hx of knee surgery right Family History Mother Cancer Diabetes Hypertension Father Cancer Diabetes Hypertension Social History Smoking and tobacco/nicotine status: never used tobacco/nicotine Second hand smoke exposure: Yes Alcohol intake: never Substance/Drug Use: never Adopted: No Caregiver/support person: No Lives independently: Yes Household members: none Housing: House Marital status: Legally Number of children: 1 service: No Current occupational exposures/hazards: No Data Anesthesia 09/13/23 13:00 09/13/23 13:00 Short CBC 09/13/23 Range/Units 13:00 WBC 5.71 (3.29-11.43) 10^3/uL Hgb 16.30 (11.27-16.99) g/dL Hct 48.6 (37-53) % MCV 90.7 (82-101) fl Plt Count 283 (157-399) 10^3/cmm Neut % (Auto) 71.1 % Neut # (Auto) 4.06 (1.8-7.7) 10^3/uL BMP 09/13/23 13:00 Sodium 140 Potassium 4.7 Chloride 103 Carbon Dioxide 23 BUN 14 Creatinine 0.9 Glucose 83 Calcium 9.8 Blood Bank 09/13/23 13:00 Blood Type A Negative Rho(D) Type Rh negative Antibody Screen Negative Cardiac Studies: 2 No Data to Display
--- NOTE | 2023-09-13 15:04 | ANES.PROC ---
Anesthesia Procedures Procedure/Date: 09/13/23 Nerve Block ^: Nerve Block 1: Main Anesthesia: spinal anesthesia block Time Out Performed: Yes Consent: requested by attending/covering physician, from patient, from other, risks and benefits reviewed and patient agrees to proceed Nerve block location: adductor canal (L) Anesthesia monitors applied: pulse oximetry, EKG, BP cuff and oxygen Nerve block position: supine Anesthetic Used: ropivicaine 0.5% (30 ml) and with decadron (4 mg) Ultrasound used to: recognize landmarks and visualize and ID femerol nerve Nerve Stimulator Used?: No Interscalene/Femoral BLK: 4 stimuplex 21 g needle used for position and inplane approach, visualize local anesthetic spread and no vascular puncture identified Injection: neg aspiration of heme Patient Tolerated Procedure: well Complications: none
--- NOTE | 2023-09-13 15:19 | PM.OPSURHP ---
Providers/Chief Complaint Admitting Physician: Rick Samayoa DO Primary Care Provider: ANGÉLICA Owusu-Demetris Chief Complaint: M17.12 Left knee degenerative joint disease History of Present Illness Ari Silvestre is a 52 year old male patient has left knee degenerative joint disease is failed conservative treatment. At this point in time patient elects to proceed with a left total knee arthroplasty Rubens robotic assisted had an MRI showing grade IV chondromalacia throughout as well as meniscal tear. We talked about his treatment options he is failed conservative treatment at this point time would like a more permanent fix elects proceed with a left total knee arthroplasty Rubens robotic assisted. He is here today after completing the preoperative clearance process. He has been medically optimized by her preoperative clinic team. Elects proceed with surgical intervention today. All questions answered. No changes health since last office visit. Review of Systems General: Reports: 10 or more systems reviewed and unremarkable except in HPI and below Medications/Allergies Home Medications Medication Instructions Recorded Confirmed Last Taken Type Hinged Knee Brace #1 ea 04/29/23 08/31/23 Unknown Rx dapagliflozin propanediol 10 mg 10 mg PO QAM #30 tabs 08/18/23 09/10/23 09/09/23 Rx tablet (Farxiga) gabapentin 600 mg tablet 600 mg PO TID #90 tabs 08/18/23 09/10/23 09/11/23 Rx pravastatin 20 mg tablet 20 mg PO DAILY #30 tabs 08/18/23 09/10/23 09/11/23 Rx AFO to right #1 ea 08/31/23 08/31/23 Unknown Rx meloxicam 15 mg tablet 15 mg PO DAILY 09/03/23 09/10/23 09/08/23 History Allergies Allergy/AdvReac Type Severity Reaction Status Date / Time Sulfa (Sulfonamide Allergy Unknown Verified 09/10/23 08:44 Antibiotics) PFSH PFSH: Medical History CKD (chronic kidney disease) stage 2, GFR 60-89 ml/min Cervical neuralgia Hyperlipemia Prediabetes Hx of essential hypertension History of rheumatoid arthritis Surgical History Hx of knee surgery right Family History Mother Cancer Diabetes Hypertension Father Cancer Diabetes Hypertension Social History Smoking and tobacco/nicotine status: never used tobacco/nicotine Second hand smoke exposure: Yes Alcohol intake: never Substance/Drug Use: never Adopted: No Caregiver/support person: No Lives independently: Yes Household members: none Housing: House Marital status: Legally Number of children: 1 service: No Current occupational exposures/hazards: No Dietary Habits: Caffeine: Yes Caffeine intake frequency: carbonated beverages, coffee and tea Vital Signs Vitals Signs: Last Vital Signs Temp 98.3 F 09/13/23 12:42 Pulse 95 09/13/23 12:42 Resp 18 09/13/23 12:42 BP 128/106 09/13/23 12:54 Pulse Ox 99 09/13/23 12:42 O2 Del Method Room Air 09/13/23 13:16 Weight: Weight last 48 hrs Weight 270 lb Physical Exam Narrative: EXAM NARRATIVE: Examination of the left knee demonstrates patient has decreased knee range of motion secondary to pain lacking roughly 5 degrees of full extension able to flex to roughly 115 with pain at end ranges of motion. Patient has significant medial joint space tenderness palpation with mild lateral joint space tenderness palpation crepitus underneath the patella on range of motion as well as pain in the retropatellar space. No evidence of patellar instability. Data 09/13/23 13:00 09/13/23 13:00 A&P Assessment and plan (1) Left knee DJD: Plan Patient is here today to proceed with left total knee arthroplasty Rubens robotic assisted understands incidence procedure risk benefits complication alternatives with surgery elects proceed with surgical intervention all questions answered at this time. Patient is cleared to preoperative clinic process. All questions answered. Elects proceed with surgery. Coding Level of Care Code Acute Code for Chg Fwd Diagnoses Left knee DJD M17.12
[2023-09-13] MEDS: ceFAZolin 2,000 MG in sodium chloride 0.9% (plus) 50 ML 100 MG IV (16:11)
[2023-09-13] MEDS: tranexamic acid 1,000 mg/10mL SDV 1000 MG IV (16:40)
[2023-09-13] MEDS: ceFAZolin 1,000 mg SDV 1000 MG IVP (17:03)
[2023-09-13] MEDS: ketorolac 30 mg/mL INJ XX (17:08)
[2023-09-13] MEDS: tranexamic acid 1,000 mg/10mL SDV 1000 MG XX (17:08)
[2023-09-13] MEDS: ROPivacaine 0.2% Btl 100 mL 200 MG INJECTION (17:08)
[2023-09-13] MEDS: EPINEPHrine 1 mg/mL INJ XX (17:08)
[2023-09-13] MEDS: vancomycin 1,000 MG SDV 1000 MG XX (17:14)
--- NOTE | 2023-09-13 18:32 | W.PM.BPON ---
Date of Procedure: 09/13/2023 Surgeon: Rick Samayoa DO Train Operations Supervisor(s): Wilfredo Samayoa PA-C Procedure(s) performed: Left total knee arthroplasty?Rubens robotic assisted Findings of the procedure(s): Patient found to have left knee severe degenerative joint disease and patient underwent left total knee arthroplasty Rubens robotic assisted without any issues or complications. Will be admitted to floor postoperatively. Estimated blood loss: 25 mL Specimen(s) removed: Tibia femur and patellar bone cuts removed Post-operative diagnosis: Left knee degenerative joint disease
--- NOTE | 2023-09-13 18:33 | PM.OP ---
Operative Report Date of procedure: September 13, 2023 Surgeon: Rick Samayoa DO Digital Sales Representative: Wilfredo Samayoa PA-C: PA was necessary for assistance in this case with leg positioning retraction and protection of neurovascular structures as well as assistance in implantation wound closure and dressing application. Procedure: Preoperative diagnosis: Left knee degenerative joint disease Post-op diagnosis: Same Procedure done: Left total knee arthroplasty, cemented?robotic assisted Rubens Implants: Loretta triathlon size 5 femur CR cemented left Loretta triathlon size? 4 tibia universal baseplate cemented [place] triathlon asymmetric patella size 35 mm [place] triathlon polyethylene 9mm Surgeon: Rick Samayoa DO Estimated blood loss: 25 mL Tourniquet 75 minutes IV fluids: 1300 mL Urine output: 300 mL Complications: None Condition: stable Disposition: floor Brief History: Patient is a 52-year-old male with with chronic left knee degenerative joint disease.? Patient has been worked up in the outpatient setting in the orthopedic office at this point time through shared decision making given? [id number] arthritis as well as failed conservative treatment, and pt would like to proceed with a left total knee arthroplasty.? Through shared decision making elected to proceed with surgical intervention for left total knee arthroplasty.? We talked about continued conservative treatment and surgical intervention as far as the risk benefits complications alternatives surgical and nonsurgical treatment options.? At this point time understanding patient risks with surgery he agrees to proceed with surgical intervention.? Once again? risk with surgery include but are not limited to make it better make it worse blood clot, heart attack, stroke, on the table, infection, injury to nerves or vessels, persistent pain, arthrofibrosis, implant failure.? Understanding these risks patient agrees to proceed with surgical intervention consent was obtained in the office.? All questions answered. Procedure: Patient was seen and evaluated in the preoperative holding area.? Consent was reviewed and signed with patient with plan for left total knee arthroplasty.? All questions answered.? Correct extremity marked.? Patient seen and evaluated by the anesthesia department and once cleared for surgery was taken back to the operative suite.? Patient was placed into a supine position on the OR table.? All bony prominences were well-padded.? Patient was appropriately secured to the bed.? Patient underwent anesthesia per the anesthesia department.? Patient received spinal anesthesia and? Zacarias catheter was placed.? A nonsterile tourniquet was applied to the left thigh.? At this point in time a final timeout performed.? Patient received appropriate preoperative antibiotics and TXA. Next the left lower extremity was then prepped and draped in standard orthopedic fashion. Esmarch tourniquet was used exsanguinate the left lower extremity.? Tourniquet was insufflated to 250 mmHg. A standard anterior incision was made over midline of the knee.? Sharp scalpel excision through skin and subcutaneous tissue full-thickness skin flaps were made.? Fascia was elevated off of the extensor retinaculum was stable with medial parapatellar arthrotomy was then made.? The performed standard sequential releases..? Immediately on entry into the joint patient was found to have severe eburnated bone and tricompartmental arthritic changes noted.? With significant osteophyte formation.? Next the the patella was then stuffed and the knee was then flexed.?? Lima was placed superiorly around the anterior aspect of the femur this was freed of synovium and I subsequently then placed by 2 femur pins to establish my femur arrays for the Rubens robot.? These were then placed bicortically and? femur array was then appropriately secured with appropriate visualization.? Next attention was turned towards the tibial rays.? These were then drilled sequentially bicortically in parallel fashion and intraincisional.? I then placed my guide as well as my tibial array on in place.? This was appropriately secured and had excellent visualization with the Rubens robot.? Next the tibial checkpoint as well as femur checkpoint were then placed.? At this point time I then subsequently established my head center as well as my medial lateral malleoli as well as my checkpoints.? Next utilizing standard Rubens technology I then mapped out the appropriate points and confirmation points around the femur as well as the tibia in standard fashion.? Once this was then done I then removed all osteophytes in preparation for dynamic testing.? All osteophytes were removed as well as I removed the ACL and the PCL was excised due to its significant tearing and degeneration noted.? At this point time the knee was brought into full extension and we performed our standard evaluation of our gap balancing stressing his ligaments and extension as well as flexion appropriate adjustments were made to have appropriate gap balancing in both flexion and extension.? This plan for final counts.? We get a preoperative plan evaluating our implants which was a size 5 femur and a size 4 tibia.? Next we brought in the Rubens robot and sequentially made our femur cuts.? All excess bony cuts were then removed.? Finally we made our tibial cut.? Once this was done a standard PCL retractor was then placed into this position I excised the medial and lateral meniscus.? The tibial cut was then subsequently removed all excess bony debris was removed.? I then utilized a lamina measurement department chief clerk and remove the posterior osteophytes.? At this point time sized the tibia and confirmed this was a size 4.? I utilized our blunt probe to establish rotation of tibial implant.? Once this was done I then placed my tibia size 4 trial in appropriate position and then subsequently placed tibial pins to hold this into place placed a size 9 mm poly as well as a size 5 femur which was appropriately impacted in place knee was then subsequently brought into extension. Trials were then assessed,? this was stable with varus valgus stress in extension as well as had symmetrical translation when brought into flexion demonstrating symmetrical gaps. I had excellent balance gaps in flexion and extension with varus and valgus stresses.? At this point I was satisfied with these implants these were then verified and opened on the back table size 4 tibia, size 5 femur,? size 9 mm polythickness.? We did confirm appropriate gap balancing and stresses as well as alignment utilizing? [employer] and were satisfied with this plan.? ?At this point time with my trials in place I then towel clip the patella everted this made appropriate measurements subsequently utilizing freehand technique performed by patellar resurfacing this was confirmed to be appropriate resection and subsequently sized to be a 35 mm asymmetric.? My drill peg guides were then clamped and appropriate position and appropriate position in the patella for appropriate tracking and parallel with the joint.? Pegs were drilled trial implant was placed and the knee was then subsequently ranged and found to have excellent patellar tracking.? Femur pegs were then drilled.? Satisfied with our tibial placement rotation I then utilized the keel punch and prepped the tibia.? At this point time all of our trial implants were removed.? All checkpoints as well as guidepins and arrays were removed and appropriate counts made.? The wound bed? was thoroughly irrigated and dried and prepped for cementation.? Cement was mixed on the back table.? Once cement was ready this was then covered onto the tibia and the tibial baseplate was then impacted and all excess cement was removed.? Next the polyethylene was then impacted into place on the tibial baseplate.? Next cement was placed onto the femur as well as under the femur implants and impacted in to place and all excess cement was extruded and removed.? Knee was taken into full extension? to clear all excess cement was removed.? Warm saline was placed over the joint.? I then towel clip patella and dried for cementation. cemented the patella into place.? This was all clamped and the cement was allowed to cure.? Thorough irrigation performed with pulse lavage.? I then placed my periarticular injection while the cement was curing.? Once cured the knee was taken through range of motion and had excellent stability and gaps were balanced in flexion and extension.? Tourniquet was then deflated. hemostasis satisfactory with electrocautery.? Next I then subsequently closed the capsule with Ethibond suture as well as a running strata fix suture.? Knee was then taken through range of motion 20 times.? Vancomycin powder was placed in the wound for infection prophylaxis. Next the skin was then closed in layered fashion of running stratifix sutures of deep and subcutenous tissue and skin.? ?closed in flexion and Prineo glue was then placed over the incision this allowed to cure.? Incision was covered with saravanan dressing, with ABDs soft roll and Yonathan wrap.? Patient was then awakened from anesthesia and taken to PACU in stable condition. Disposition: Patient taken to PACU in stable condition will be admitted to the floor for pain control PT/OT weight-bear as tolerated left lower extremity dressing changes as needed, DVT prophylaxis. Pain control. Patient will receive appropriate postoperative antibiotics. patient will be seen today by the internal medicine team for medical management.? Patient will follow up with the office in 2 weeks.? Patient understands agrees with current plan.? All questions answered.
--- NOTE | 2023-09-13 18:39 | XRR_ITS ---
PROCEDURE INFORMATION: Exam: XR Left Knee Exam date and time: 09/13/2023 6:08 PM Age: 52 years old Clinical indication: Device placement; Joint fixation hardware; Prior surgery; Surgery date: Post-operative (0-2 days); Surgery type: Lt tkr; Additional info: Post L tka, do in pacu TECHNIQUE: Imaging protocol: Radiologic exam of the left knee. Views: 1 or 2 views. COMPARISON: CT knee LT [facility] [id number] 09/03/2023 8:56 AM FINDINGS: Bones/joints: Total left knee arthroplasty. The bones and hardware are intact. Stable chronic bone spur along the medial femoral condyle. Operative gas in the knee joint and soft tissues. Soft tissues: See Bones/joints finding. XR/XR knee LT -2V [id number] IMPRESSION: Left knee arthroplasty.
--- NOTE | 2023-09-13 19:07 | PM.PACU ---
PACU note Narrative: Patient is a 52-year-old male who just underwent a left total knee arthroplasty. Pt transferred to PACU in stable condition. Dressing is dry. pt is awake and alert. pt able to perform straight leg raise, Femoral nerve intact. Distal pulses are palpable toes are warm and well-perfused. Cap refill is normal and under 2 seconds. Sensation and motor to foot unable to further assess due to residual anesthesia. Pain is controlled. Exam: awake Disposition: admitted
--- NOTE | 2023-09-13 19:25 | ANE.PACU2 ---
Inpatient post-anesthesia follow up: Airway intact: Yes Vital signs: Temperature 97.9 F Pulse Rate 56 Respiratory Rate 20 Blood Pressure 101/58 Pulse Oximetry 95 Oxygen Delivery Me thod Room Air Oxygen Flow Rate 6 Fraction of Inspir ed Oxygen Hydration adequate: Yes Nausea and vomiting: No Pain level: 1 Mental status: Baseline
[2023-09-13] MEDS: lactated ringers 1,000 ML 100 ML IV (20:18)
[2023-09-13] MEDS: chlorhexidine gluconate 0.12% Btl 473 mL 30 ML MUCOUS MEM (20:18)
--- NOTE | 2023-09-13 20:26 | PC.NURSE ---
pt requested for SCD to be removed, education related to blood clot prevention and pt continue to refuse to wear SCD. SCD removed
--- NOTE | 2023-09-13 22:06 | P.CONIM_ITS ---
Providers/Reason For Consult 2 Consulting Physician/Specialty*: Hospitalist Reason for Consult*: Postoperative diabetic management Attending Physician: Rick Samayoa DO Primary Care Provider: PADMINI Owusu History of Present Illness History of Present Illness Ari Silvestre is a 52 year old male status post left total knee arthroplasty, hospitalist was consulted for postoperative management of pre-diabetes. Patient takes dapagliflozin 10 mg tablet at home used to take metformin 500 mg twice daily. Meloxicam however he does have chronic kidney disease stage II. At the time of my evaluation patient is resting comfortably with stable hemodynamics, no active complaints Review of records: Last hemoglobin A1c was around 5.[address] Dr. Ramirez for ankle instability Review of Systems 2 Const: Denies: fever(s) Eyes: Denies: change in vision ENMT: Denies: throat pain Card: Denies: chest pain Resp: Denies: dyspnea GI: Denies: abdominal pain : Denies: flank pain Musc: Denies: neck pain Skin/Breast: Denies: rash Neuro: Denies: headache(s) Psych: Denies: anxiety Medications/Allergies Home Medications Medication Instructions Recorded Confirmed Last Taken Type Hinged Knee Brace #1 ea 04/29/23 08/31/23 Unknown Rx dapagliflozin propanediol 10 mg 10 mg PO QAM #30 tabs 08/18/23 09/10/23 09/09/23 Rx tablet (Farxiga) gabapentin 600 mg tablet 600 mg PO TID #90 tabs 08/18/23 09/10/23 09/11/23 Rx pravastatin 20 mg tablet 20 mg PO DAILY #30 tabs 08/18/23 09/10/23 09/11/23 Rx AFO to right #1 ea 08/31/23 08/31/23 Unknown Rx meloxicam 15 mg tablet 15 mg PO DAILY 09/03/23 09/10/23 09/08/23 History Allergies Allergy/AdvReac Type Severity Reaction Status Date / Time Sulfa (Sulfonamide Allergy Unknown Verified 09/10/23 08:44 Antibiotics) Current Medications Generic Name Dose Route Start Last Admin Trade Name Freq PRN Reason Stop Dose Admin Chlorhexidine Gluconate 30 ml 09/13/23 21:00 09/13/23 20:18 Chlorhexidine Gluconate 0.12% Btl 473 Ml MUCOUS MEM 30 ml QID BRUCE Administration Acetaminophen 1,000 mg in 100 mls @ 400 mls/hr 09/13/23 21:00 09/13/23 20:45 Acetaminophen IV 09/14/23 13:14 Infused Q8H BRUCE Infusion Lactated Ringer's 1,000 mls @ 100 mls/hr 09/13/23 19:54 09/13/23 20:18 Lactated Ringers IV 100 mls/hr .Q10H BRUCE Administration PFSH Acute 2 PFSH: Medical History CKD (chronic kidney disease) stage 2, GFR 60-89 ml/min Cervical neuralgia Hyperlipemia Prediabetes Hx of essential hypertension History of rheumatoid arthritis Surgical History Hx of knee surgery right Family History Mother Cancer Diabetes Hypertension Father Cancer Diabetes Hypertension Social History Smoking and tobacco/nicotine status: never used tobacco/nicotine Second hand smoke exposure: Yes Alcohol intake: never Substance/Drug Use: never Adopted: No Caregiver/support person: No Lives independently: Yes Household members: none Housing: House Marital status: Legally Number of children: 1 service: No Current occupational exposures/hazards: No Vitals/I&O/Wt Last Vital Signs Temp 97.8 F 09/13/23 20:30 Pulse 78 09/13/23 20:52 Resp 18 09/13/23 20:52 BP 143/87 09/13/23 20:30 Pulse Ox 94 09/13/23 20:52 O2 Del Method Room Air 09/13/23 22:04 O2 Flow Rate 6 09/13/23 19:03 09/13/23 09/13/23 09/13/23 06:59 14:59 22:59 Intake Total 600 / 600 1500 / 2100 Output Total 325 / 325 Balance 600 / 600 1175 / 1775 Weight last 48 hrs Weight 122.47 kg Weight 122.47 kg Physical Exam 2 Narrative: Awake and alert Pleasant Left knee covered with dressing Hemodynamically stable NIH 0 Nonfocal neuroexam Currently on room air S1, S2 Urinary Catheter Management: Zacarias Latex: Cath Placed During This Visit: yes Urinary Catheter Date of Insertion: 09/13/23 Urinary Catheter Time of Insertion: 16:40 Data 09/13/23 13:00 09/13/23 13:00 A&P Assessment and plan (1) Prediabetes: (2) CKD (chronic kidney disease) stage 2, GFR 60-89 ml/min: (3) Cervical neuralgia: Plan Postop day 0 left knee total arthroplasty postoperative management of diabetes Patient takes Ibuprofen at home Check A1c level For now I will keep him on medium dose intensity sliding scale Patient is hemodynamically stable Pain well-controlled Currently doing well on room air Monitor for postoperative complications Incentive spirometer to prevent atelectasis Monitor white count, fever and hemodynamic parameters PT ordered already On DVT prophylaxis Eliquis Plan for discharge home by tomorrow Consult Attestations 2 Medical Necessity Statement: As per orthopedic Diagnoses Prediabetes R73.03 CKD (chronic kidney disease) stage 2, GFR 60-89 ml/min N18.2 Cervical neuralgia M54.12
[2023-09-13] MEDS: ceFAZolin 3,000 MG in sodium chloride 0.9% (plus) 100 ML 200 MG IV (23:57)
[2023-09-14] VITALS (9 sets, daily range): BP systolic 101–134; BP diastolic 58–87; PULSE 53–78; RESP 17–20; TEMP 36.6–37.3; O2SAT 94–97
[2023-09-14] MEDS: oxyCODONE 5 mg IR Tab/Cap PO ×2 (00:15→05:16)
[2023-09-14] MEDS: tranexamic acid 1,000 MG/100 ML PREMIX 600 MG IV (00:31)
[2023-09-14] MEDS: acetaminophen 1,000 MG/100 ML PIGGYBACK 400 MG IV ×2 (05:07→12:31)
[2023-09-14 05:20] LABS: Basophils % 0.1 %; Hematocrit 45.7 % (37-53); Lymphocytes # 1.1 10^3/uL (0.8-4.8); Lymphocytes % 11.1 %; Mean Corpuscular Hemoglobin 30.7 pg (27-33); Mean Corpuscular Volume 92.9 fl (82-101); Mean Platelet Volume 9.8 fL (7.4-10.4); Monocytes # 0.8 10^3/uL (0.2-0.9); Monocytes % 7.8 %; Neutrophils # 7.74 10^3/uL (1.8-7.7); Neutrophils % 80.6 %; Nucleated Red Blood Cells % 0 %; Platelet Count 267 10^3/cmm (157-399); Red Blood Count 4.92 10^6/uL (3.85-5.65); Red Cell Distribution Width 12.5 % (12.1-15.1); White Blood Count 9.61 10^3/uL (3.29-11.43)
[2023-09-14 05:45] LABS: Anion Gap 16.8 (5-19); Blood Urea Nitrogen 15 mg/dL (6-20); Calcium 9.1 mg/dL (8.5-10.5); Carbon Dioxide 22 mmol/L (22-29); Chloride 106 mmol/L (98-107); Creatinine Clr Calc Pharmacy 138.7526; Glomerular Filtration Rate 100.7 mL/min (90-130); Glucose 121 mg/dL (65-115); Osmolality Calculated 292 mOsm/kg (285-295); Potassium 4.8 mmol/L (3.5-5.1); Sodium 140 mmol/L (136-145)
[2023-09-14 06:39] LABS: Glucose Point of Care 98 mg/dL (70-110)
[2023-09-14] MEDS: ceFAZolin 3,000 MG in sodium chloride 0.9% (plus) 100 ML 200 MG IV (08:25)
[2023-09-14] MEDS: iron polysaccharide complex 150 mg Capsule PO (08:26)
[2023-09-14] MEDS: docusate sodium 100 mg Capsule PO (08:27)
[2023-09-14] MEDS: multivitamin therapeutic Tablet 1 TAB PO (08:27)
[2023-09-14] MEDS: gabapentin 300 mg Capsule 600 MG PO ×2 (08:27→16:34)
[2023-09-14] MEDS: apixaban 5 mg Tablet 2.5 MG PO (08:27)
[2023-09-14] MEDS: calcium carb-vit d 600mg/400unit 1 Tablet 1 EACH PO (08:27)
[2023-09-14] MEDS: chlorhexidine gluconate 0.12% Btl 473 mL 30 ML MUCOUS MEM ×2 (08:28→12:37)
[2023-09-14] MEDS: mupirocin oint 22 gm 1 APPLIC NASAL (09:32)
--- NOTE | 2023-09-14 10:12 | PC.CHAP ---
Pastoral Care Encounter/Spiritual Assessment Type of Contact [] Declined maternity floor supervisor visit [] Patient/Family/Request visit [] Outpatient visit [] Follow-up visit [] Physician referral [] Code/Alert [x] Routine visit [] Staff referral [] Actively dying [] Patient sleeping [] Family support [] [] Out of room [] Palliative care [] [] Receiving care in room [] Pre-surgical visit [] Trauma [] Long length of stay [] ICU visit [] Other: Relational/Emotional Strength [x] Patient feels connected with others/family/visitors/staff [] Distress [] Loneliness/isolation [] Abandonment Spirituality of Patient [x] Person of Kaitlin [] Attends Religious of their Kaitlin [x] Believes in Prayer [] Reads Bible or Faith materials [] There are Spiritual issues to be addressed Bi Application Developer Interventions [x] Prayer [x] Active listening [] Non-anxious presence [x] Spiritual/emotional support [] Crisis/trauma care [] Spiritual counseling [] Bereavement support [] Provided bereavement packet [] Provided Bible/devotional materials [] Provided toy/stuffed animal, coloring book to patient or family member [] Provided Communion [] Anointing/[place] [] Salvation [] Completed spiritual assessment [] Other: Impact on Illness or Injury [] Angry [] Fearful [] Anxious [] Often cries [] Exhaustion [] Unable to work [] Unable to attend zoroastrianism [] Unable to walk/stand [] Unable to read [] Unable to drive [] Unable to eat/drink [] Unable to sleep [] Unable to be with family [] Patient intubated [] Other: Summary Time spent with patient 5 min
[2023-09-14 11:19] LABS: Glucose Point of Care 102 mg/dL (70-110)
--- NOTE | 2023-09-14 12:21 | P.DS_ITS ---
Discharge Providers Date of Admission: 09/13/23 19:20 Date of Discharge: September 14, 2023 Attending Provider at Admission: Rick Samayoa DO Attending Provider at Discharge: Rick Samayoa DO Consults: Dr. Godwin?hospitalist Primary Care Provider: PADMINI Owusu Diagnoses at Discharge Discharge Diagnosis (1) Prediabetes: Status: Acute (2) CKD (chronic kidney disease) stage 2, GFR 60-89 ml/min: Status: Acute (3) Cervical neuralgia: Status: Chronic Reason for Visit Reason for Visit: M17.12 Brief History: Status post left total knee arthroplasty Hospital Course Hospital Course Patient presented to the preoperative holding area with plan for left total knee arthroplasty after patient has been worked up in the outpatient setting for failed conservative treatment of [left ] knee degenerative joint disease. Once cleared by anesthesia for surgery patient subsequently was taken back to the operative suite underwent anesthesia per anesthesia department and then subsequently underwent a [left ] total knee arthroplasty. Procedure was performed without any complications patient was taken to PACU in stable condition patient recovered well in PACU and then was admitted to the floor postoperatively internal medicine was consulted and on board for medical management and assistance with care. Patient received appropriate PT/OT, postoperative antibiotics, postoperative TXA, pain control, postoperative DVT prophylaxis. Elevation and ice. Patient encouraged for knee range of motion allowed weightbearing as tolerated to the operative lower extremity. Dressing was changed as needed, labs were monitored daily. Patient recovered well postoperatively and worked well and progressed well with therapy. It was determined on postoperative day [1 ] the patient was stable for discharge from an orthopedic standpoint and medicine. Patient was comfortable with discharge and plan was discharged home. Patient received appropriate discharge instructions as well as pain medication and DVT prophylaxis postoperatively. Given appropriate instructions for dressing management. Patient will follow-up with Dr. Samayoa/orthopedics in the office in 2 weeks. All questions answered. Understand if there is any issues questions or concerns and contact the office. Physical Exam Narrative: Orthopedic specific examination left knee: Dressing in place clean dry intact, dressing not taken down. Compartments are soft compressible. Normal swelling noted about the knee. Patient stable varus valgus stress. Is able to wiggle toes plantarflex dorsiflex ankle sensations intact light touch distally distal pulses palpable. Urinary Catheter Management: Zacarias Latex: Cath Placed During This Visit: yes, but has since been removed by the nurse Reason for Continuing Indwelling Catheter: Acute Urinary Retention or Obstruction Urinary Catheter Date of Insertion: 09/13/23 Urinary Catheter Time of Insertion: 16:40 Date Urinary Catheter Removed: 09/13/23 Time Urinary Catheter Discontinued: 23:00 Discharge Data Studies Completed and Pending Completed Studies During Hospitalization Category Date Time Status XR knee LT 1-2V 26010 Routine Exams 09/13/23 18:39 Completed Pending at discharge Category Date Time Status Basic Metabolic Panel AM LABS Lab 09/15/23 04:00 Ordered Basic Metabolic Panel AM LABS Lab 09/16/23 04:00 Ordered Complete Blood Count w/Auto AM LABS Lab 09/15/23 04:00 Ordered Complete Blood Count w/Auto AM LABS Lab 09/16/23 04:00 Ordered Radiology Impressions Knee X-Ray 09/13/23 18:39 IMPRESSION: Left knee arthroplasty. Laboratory Results WBC 9.61 10^3/uL (3.29-11.43) 09/14/23 04:46 RBC 4.92 10^6/uL (3.85-5.65) 09/14/23 04:46 Hgb 15.10 g/dL (11.27-16.99) 09/14/23 04:46 Hct 45.7 % (37-53) 09/14/23 04:46 MCV 92.9 fl (82-101) 09/14/23 04:46 MCH 30.7 pg (27-33) 09/14/23 04:46 MCHC 33.0 g/dL (30-55) 09/14/23 04:46 RDW 12.5 % (12.1-15.1) 09/14/23 04:46 Plt Count 267 10^3/cmm (157-399) 09/14/23 04:46 MPV 9.8 fL (7.4-10.4) 09/14/23 04:46 Neut % (Auto) 80.6 % 09/14/23 04:46 Lymph % (Auto) 11.1 % 09/14/23 04:46 Candler % (Auto) 7.8 % 09/14/23 04:46 Eos % (Auto) 0.0 % 09/14/23 04:46 Baso % (Auto) 0.1 % 09/14/23 04:46 Neut # (Auto) 7.74 10^3/uL (1.8-7.7) H 09/14/23 04:46 Lymph # (Auto) 1.1 10^3/uL (0.8-4.8) 09/14/23 04:46 Candler # (Auto) 0.8 10^3/uL (0.2-0.9) 09/14/23 04:46 Eos # (Auto) 0.0 10^3/uL (0.0-0.8) 09/14/23 04:46 Baso # (Auto) 0.0 10^3/uL (0.0-0.1) 09/14/23 04:46 Nucleated RBC % (auto) 0 % 09/14/23 04:46 Nucleated RBCs # 0.0 /100WBC 09/14/23 04:46 Sodium 140 mmol/L (136-145) 09/14/23 04:46 Potassium 4.8 mmol/L (3.5-5.1) 09/14/23 04:46 Chloride 106 mmol/L (98-107) 09/14/23 04:46 Carbon Dioxide 22 mmol/L (22-29) 09/14/23 04:46 Anion Gap 16.8 (5-19) 09/14/23 04:46 BUN 15 mg/dL (6-20) 09/14/23 04:46 Creatinine 0.8 mg/dL (0.7-1.2) 09/14/23 04:46 GFR Calculation 100.7 mL/min (90-130) 09/14/23 04:46 Glucose 121 mg/dL (65-115) H 09/14/23 04:46 POC Glucose 102 mg/dL (70-110) 09/14/23 11:12 Calculated Osmolality 292 mOsm/kg (285-295) 09/14/23 04:46 Calcium 9.1 mg/dL (8.5-10.5) 09/14/23 04:46 Blood Type A Negative 09/13/23 13:00 Rho(D) Type Rh negative 09/13/23 13:00 Antibody Screen Negative 09/13/23 13:00 Vitals Last Vital Signs Temp 97.9 F 09/14/23 04:21 Pulse 56 L 09/14/23 04:21 Resp 20 H 09/14/23 05:16 BP 101/58 09/14/23 04:21 Pulse Ox 95 09/14/23 04:21 O2 Del Method Room Air 09/13/23 22:04 O2 Flow Rate 6 09/13/23 19:03 Discharge Plan Discharge Patient Disposition: Home Condition: Stable Prescriptions: New Calcium 600 + D(3) 600 mg-10 mcg (400 unit) tablet 1 tab PO DAILY 30 Days Qty: 30 0RF Eliquis 2.5 mg tablet 2.5 mg PO BID 14 Days Qty: 28 0RF oxycodone 5 mg tablet 5 mg PO Q6H PRN (Reason: pain postop) 7 Days Qty: 28 0RF cephalexin 500 mg capsule 500 mg PO Q8H 10 Days Qty: 30 0RF Continued (DME) Hinged Knee Brace See Rx Instructions .Route .MEDSUPPLY Qty: 1 0RF Rx Instructions: As directed (DME) AFO to right See Rx Instructions .Route .MEDSUPPLY Qty: 1 0RF Rx Instructions: As directed by [facility] pravastatin 20 mg tablet 20 mg PO DAILY Qty: 30 2RF gabapentin 600 mg tablet 600 mg PO TID Qty: 90 2RF dapagliflozin propanediol [Farxiga] 10 mg tablet 10 mg PO QAM Qty: 30 2RF Held meloxicam 15 mg tablet 15 mg PO DAILY Hold Instructions: Resume on 09/28/23. Discharge Orders: Discharge Order (Routine); Ordered 09/14/23 Ordered By: Rick Samayoa Other Ambulatory Orders: DME: Walker (Order) Location: None Selected Ordered By: Monica Avalos Referrals: Rick Samayoa DO [Physician] - 10/05/23 2:15 pm Discharge Diet: Advance as tolerated Discharge Activity: Increase activity as tolerated Patient Instructions: Cephalexin (By mouth), Oxycodone, Rapid Release (By mouth), Ondansetron (By mouth), Calcium Supplement (By mouth) (Antacid, Murphy- Citrate, Calcarb 600,..., Apixaban (By mouth), Total Knee Replacement (GEN), Opioid Safety Activity Restrictions/Additional Instructions: Orthopedic discharge instructions: Patient may weight-bear as tolerate to the left lower extremity Leave saravanan dressing on in place for 7 days after that May remove dressing. No baths or soaks. After 7 days remove okay to shower and then replace with a dry dressing Ice and elevate as needed for pain and swelling Yonathan wrap can come off after 3 days Range of motion as tolerated Take pain medication as prescribed Take antibiotic as prescribed Take blood thinner medication (Eliquis) as prescribed Take antinausea medication as needed Follow-up with orthopedics in the office in 2 weeks Contact the office for any questions or concerns Discharge Attestations Time Spent in Discharge Care*: less than 30 min Quality Metrics Clinical Quality Measures [ No reported AMI, CVA or VTE this stay] Coding Level of Care Code Acute Code for Chg Fwd Diagnoses Prediabetes R73.03 CKD (chronic kidney disease) stage 2, GFR 60-89 ml/min N18.2 Cervical neuralgia M54.12 Time Spent (min) 30
--- NOTE | 2023-09-14 14:58 | P.PN_ITS ---
Subjective 2 Subjective: Seen this morning. No acute events overnight. Patient is in great spirits sitting up in recliner. He is hoping to go home today. Hemoglobin is stable 15.1. Creatinine 0.8. Blood sugar 121. Has not required any sliding scale insulin at this time. Takes Farxiga at home. No longer on metformin. Vitals/I&O/Wt Last Vital Signs Temp 98.0 F 09/14/23 14:34 Pulse 71 09/14/23 14:34 Resp 18 09/14/23 14:34 BP 118/81 09/14/23 14:34 Pulse Ox 96 09/14/23 14:34 O2 Del Method Room Air 09/14/23 14:34 O2 Flow Rate 6 09/13/23 19:03 09/13/23 09/14/23 09/14/23 22:59 06:59 14:59 Intake Total 2136 / 2736 300 / 3036 960 / 960 Output Total 350 / 350 0 / 350 Balance 1786 / 2386 300 / 2686 960 / 960 Weight last 48 hrs Weight 126.28 kg Weight 122.47 kg Weight 122.47 kg Physical Exam 2 Narrative: Awake and alert Pleasant Left knee covered with dressing Hemodynamically stable NIH 0 Nonfocal neuroexam Currently on room air S1, S2 Clear to auscultation bilaterally no wheezes no rhonchi Morbidly obese male sitting up in recliner. Urinary Catheter Management: Zacarias Latex: Cath Placed During This Visit: yes, but has since been removed by the nurse Reason for Continuing Indwelling Catheter: Acute Urinary Retention or Obstruction Urinary Catheter Date of Insertion: 09/13/23 Urinary Catheter Time of Insertion: 16:40 Date Urinary Catheter Removed: 09/13/23 Time Urinary Catheter Discontinued: 23:00 Data 09/14/23 04:46 09/14/23 04:46 A&P Assessment and plan (1) Prediabetes: (2) CKD (chronic kidney disease) stage 2, GFR 60-89 ml/min: (3) Cervical neuralgia: Plan Postop day 1 left knee total arthroplasty postoperative management of diabetes Patient takes Ibuprofen at home A1c 5.4. Do not believe we need any sliding scale insulin at this time. If warranted may add low-dose intensity sliding scale. Patient may continue Farxiga at discharge. He is to follow-up with his primary care doctor for further management of his blood sugars. During hospital stay we will monitor sugars ACHS and use low-dose intensity sliding scale if required. Blood pressure is stable. Pain is well-controlled. Saturating 96% on room air. Continue incentive spirometer use to prevent atelectasis. ? No sign of pneumonia. Continue Eliquis for DVT prophylaxis at discharge. Patient may discharge as per primary orthopedic team. We will continue to follow as long as patient is admitted. Thank you for involving us in his care. Attestations 2 Medical Necessity Statement*: Defer to primary team Diagnoses Prediabetes R73.03 CKD (chronic kidney disease) stage 2, GFR 60-89 ml/min N18.2 Cervical neuralgia M54.12
== END 2023-09-14 17:57 | disposition home or self-care (01) ==
LOC: MEDSURG 19:21
PROVIDERS: Physician Assistant; Admitting Provider Student in an Organized Health Care Education/Training Program; PCP Nurse Practitioner; Visit Provider Student in an Organized Health Care Education/Training Program
PROC: 8E0Y0CZ Robotic Assisted Procedure of Lower Extremity, Open Approach (ICD-10-PCS; CPT 27447; principal; 2023-09-13 13:55)
DX: M17.12 Unilateral primary osteoarthritis, left knee (principal); E66.01 Morbid (severe) obesity due to excess calories; Z68.41 Body mass index [BMI] 40.0-44.9, adult; E11.22 Type 2 diabetes mellitus with diabetic chronic kidney disease; I12.9 Hypertensive chronic kidney disease with stage 1 through stage 4 chronic kidney disease, or unspecified chronic kidney disease; N18.2 Chronic kidney disease, stage 2 (mild)
CPT/HCPCS: 20985; 27447; 36415; 36416; 51702; 73560; 80048; 82962; 85025; 86850; 86900; 97110; 97116; 97161; 97165; C1776; G0378; J0131; J0171; J0690; J1100; J1885; J2250; J2704; J2795; J3370; J7030; J7120

== ENCOUNTER → 2023-10-15 08:20 | Outpatient (BNVA) | payer MEDICAID, SELFPAY | PROVIDERS: PCP Nurse Practitioner; Visit Provider Physician Assistant | DX: Z96.652 Presence of left artificial knee joint (principal) | CPT/HCPCS: 73560; 73565 ==

== ENCOUNTER → 2023-12-14 07:44 | Outpatient (BNVA) | payer OTHER, MEDICAID, SELFPAY | PROVIDERS: PCP Nurse Practitioner; Visit Provider Physician Assistant | DX: Z96.652 Presence of left artificial knee joint (principal) | CPT/HCPCS: 73560; 73565 ==

== ENCOUNTER → 2023-12-21 11:29 | Outpatient (BNVA) | payer OTHER, MEDICAID, SELFPAY | PROVIDERS: PCP Nurse Practitioner; Visit Provider Nurse Practitioner | DX: E78.2 Mixed hyperlipidemia (principal); E55.9 Vitamin D deficiency, unspecified; R73.9 Hyperglycemia, unspecified; R07.9 Chest pain, unspecified; K06.9 Disorder of gingiva and edentulous alveolar ridge, unspecified; Z79.899 Other long term (current) drug therapy | CPT/HCPCS: 80053; 80061; 82306; 83036; 84443; 85025; 86140 ==

== ENCOUNTER 2024-02-22 10:49 | Outpatient (CLI) | payer OTHER, MEDICAID, SELFPAY ==
--- NOTE | 2024-02-22 10:54 | USCV_ITS ---
Ari Silvestre Age: 53 Gender: M : 1970 Exam Date: 02/22/2024 11:06 Ordering Phys: Mann Martinez Technologist: CT Exam Location: [facility] [place] Indication: sob BP: 130 / 85 HR: 71 Rhythm: Sinus Technical Quality: Adequate MEASUREMENTS (Male / Female) Normal Values 2D ECHO LVOT Diameter 2.0 cm LV Ejection Fraction MOD 4C 64.0 % LV Ejection Fraction MOD 2C 54.1 % LV Ejection Fraction 2C AL 56.6 % LA Diameter 3.2 cm RA Systolic Volume 4C AL 31.2 ml RA Systolic Volume 4C MOD 29.7 ml LA Sys Volume AL 65.1 cm cubed LA Sys Volume Index AL 26.2 cm cubed/m squared Aorta at Sinotubular Diameter 2.4 cm M-MODE LA Ao Ratio MM 1.6 AV Cusp Separation MM 2.0 cm DOPPLER AV Peak Velocity 170.0 cm/s LVOT Peak Velocity 159.0 cm/s AV Area Cont Eq vti 3.4 cm squared AV Area Cont Eq pk 3.0 cm squared MV Peak Velocity 91.0 cm/s MV Area PHT 3.4 cm squared Mitral E to A Ratio 1.0 TV Peak Velocity 165.5 cm/s TR Peak Velocity 195.0 cm/s TR Peak Gradient 15.2 mmHg TV Peak E Velocity 59.0 cm/s Right Atrial Pressure 3.0 mmHg Pulmonary Artery Systolic Pressu 18.2 mmHg PV Peak Velocity 127.0 cm/s FINDINGS Left Ventricle Left ventricle is normal size. LV systolic function is normal with EF 55 to 60%. No regional wall motion abnormalities are seen. Right Ventricle Normal in size and function Right Atrium Normal in size Left Atrium Normal in size Mitral Valve Structurally normal mitral valve. Mild mitral regurgitation. Aortic Valve Grossly thickened. No significant stenosis or regurgitation. Tricuspid Valve Mild tricuspid regurgitation. Pulmonary artery systolic pressure is normal. Pulmonic Valve Not well visualized Pericardium Normal Aorta Normal in size IVC Appears to be normal CONCLUSIONS LV systolic function is normal with EF of 55-60% Mild mitral regurgitation Mild tricuspid regurgitation No comparison studies are available. Jagdish Wen MD (Electronically Signed) Final Date: 23 February 2024 09:38 S
== END 2024-02-22 10:50 | disposition home or self-care (01) ==
LOC: RAD 10:50
PROVIDERS: PCP Nurse Practitioner; Visit Provider Nurse Practitioner
DX: R07.9 Chest pain, unspecified (principal)
CPT/HCPCS: 93306

== ENCOUNTER → 2024-04-06 08:09 | Outpatient (BNVA) | payer OTHER, MEDICAID, SELFPAY | PROVIDERS: PCP Nurse Practitioner; Visit Provider Physician Assistant | DX: Z96.652 Presence of left artificial knee joint (principal) | CPT/HCPCS: 73560; 73565 ==

== ENCOUNTER 2024-04-07 08:06 | Outpatient (CLI) | payer OTHER, MEDICAID, SELFPAY ==
[2024-04-07 08:23] VITALS: BMI 39.9
--- NOTE | 2024-04-07 08:26 | ECG_ITS ---
[employer] Test Date: 2024-04-07 Pat Name: Ari Silvestre Department: Room: Gender: Male Air Pollution Inspector: : 1970 Requested By: James Marina Order Number: [id number] Reading MD: JAMES MARINA Interpretive Statements Lung unchanged pre/post procedure; Intraprocedure shortess of breath; Symptoms resoled by discharge NOTE: Please note that this is the electrocardiogram portion of the Lexiscan/Sestamibi stress test. The perfusion scan will be documented separately. DATA: Baseline heart rate was 75 beats per minute. Baseline blood pressure was 127/102 millimeters of mercury. Target heart rate was 165. Maximum heart rate achieved was 95. which was 57% of the predicted target heart rate. Maximum blood pressure was 147/106 millimeters of mercury. The reason for ending the test was completion of the protocol. The patient did not experience any symptoms. ELECTROCARDIOGRAM: BASELINE: Sinus rhythm. Normal axis. Otherwise, no ST-T changes suggestive of ischemia noted. No arrhythmia noted. EXERCISE: After Lexiscan injection, no ST-T changes suggestive of ischemic noted. No arrhythmia noted. CONCLUSION: Please note due to baseline abnormality of the EKG specificity and sensitivity of the EKG portion of LexiScan MIBI stress test will be low 1. EKG not suggestive of ischemia 2. Lexiscan injection unremarkable. 3. Perfusion scan will be documented separately. Electronically Signed On 04-16-2024 15:13:29 CDT by JAMES MARINA [email or web address]
--- NOTE | 2024-04-07 08:26 | NMCV_ITS ---
NM basia perf SPECT r/s* [id number] Ari Silvestre Age: 53 Gender: M : 1970 Exam Date: 04/07/2024 08:26 Ordering Phys: James Marina MD ([email or web address]) Technologist: MATT Fan Exam Location: [facility] [place] Indications: cp STRESS TEST Please see separate stress test report in [facility] for full findings IMAGE PROTOCOL Rest/Stress 1 Lexiscan Day Radiopharmaceutical Dose (mCi) Administration Site Administered by Rest: Tc-99m 10.9 IV Nohelia Moya CARROTING MACHINE OFFBEARER Sestamibi Stress:Tc-99m 33 IV Nohelia Moya, CARROTING MACHINE OFFBEARER Sestamibi Rest: 07-Apr-2024 60 Discovery 630 Stress: 07-Apr-2024 30 Discovery 630 0.4mg Lexiscan. Images obtained in supine and prone position. SPECT RESULTS Technical Quality: Good Raw Data Analysis: Normal Image Corrections: No attenuation or motion correction applied Summed Stress Score: 0 Summed Rest Score: 0 Summed Difference Score: 0 PERFUSION FINDINGS There appeared to be mild mid anterior wall decreased tracer uptake/reversibility in the absence of wall motion abnormality most likely it is an artifact. FUNCTIONAL RESULTS (calculated via Gated SPECT) Stress Image LV EF (%): 78 Stress EDV (mL):86 TID: 1.2 Stress ESV (mL):19 FUNCTIONAL FINDINGS: There is normal left ventricular systolic function. TID ratio is elevated which could be secondary to left ventricular hypertrophy/subendocardial ischemia however cannot rule out multivessel coronary artery disease, clinical correlation advised IMPRESSIONS The study is negative for ischemia and low probability for obstructive coronary artery disease. EKG segment will be documented separately. James Marina MD (Electronically Signed) Final Date: 07 April 2024 19:09 S
[2024-04-07] MEDS: regadenoson 0.4 Mg/5 ml Syringe IVP (11:13)
[2024-04-07 11:23] VITALS: BP 136/101; PULSE 80
== END 2024-04-07 08:07 | disposition home or self-care (01) ==
PROVIDERS: PCP Nurse Practitioner; Visit Provider Internal Medicine Cardiovascular Disease
DX: R07.9 Chest pain, unspecified (principal); R06.02 Shortness of breath
CPT/HCPCS: 36415; 78452; 93017; 96374; A9500; J2785

== ENCOUNTER → 2024-06-01 14:58 | Outpatient (BNVA) | payer OTHER, MEDICAID, SELFPAY | PROVIDERS: PCP Nurse Practitioner; Visit Provider Nurse Practitioner | DX: I10 Essential (primary) hypertension (principal); N18.2 Chronic kidney disease, stage 2 (mild); E55.9 Vitamin D deficiency, unspecified; Z79.899 Other long term (current) drug therapy | CPT/HCPCS: 80053; 80061; 81000; 82306; 84550; 85025; 85651; 86140 ==

== ENCOUNTER → 2024-06-26 07:25 | Outpatient (BNVA) | payer OTHER, MEDICAID, SELFPAY | PROVIDERS: PCP Nurse Practitioner; Visit Provider Podiatrist Foot & Ankle Surgery | DX: M79.671 Pain in right foot (principal); M25.571 Pain in right ankle and joints of right foot; M25.371 Other instability, right ankle; R73.03 Prediabetes; N18.2 Chronic kidney disease, stage 2 (mild); G89.29 Other chronic pain; M54.16 Radiculopathy, lumbar region | CPT/HCPCS: 73610; 73620 ==

== ENCOUNTER → 2024-09-18 10:56 | Outpatient (BNVA) | payer OTHER, MEDICAID, SELFPAY | PROVIDERS: PCP Nurse Practitioner; Visit Provider Nurse Practitioner | DX: M25.50 Pain in unspecified joint (principal) | CPT/HCPCS: 72040; 73030 ==

== ENCOUNTER → 2024-10-10 09:10 | Outpatient (BNVA) | payer OTHER, MEDICAID, SELFPAY | PROVIDERS: PCP Nurse Practitioner; Visit Provider Nurse Practitioner | DX: I10 Essential (primary) hypertension (principal); E55.9 Vitamin D deficiency, unspecified; Z12.5 Encounter for screening for malignant neoplasm of prostate | CPT/HCPCS: 80053; 80061; 82306; G0103 ==

== ENCOUNTER → 2024-10-24 08:16 | Outpatient (BNVA) | payer OTHER, MEDICAID, SELFPAY | PROVIDERS: PCP Nurse Practitioner; Visit Provider Physician Assistant | DX: M19.011 Primary osteoarthritis, right shoulder (principal); M75.41 Impingement syndrome of right shoulder | CPT/HCPCS: 73030 ==

== ENCOUNTER → 2024-12-11 10:53 | Outpatient (BNVA) | payer MEDICAID, SELFPAY | PROVIDERS: PCP Nurse Practitioner; Visit Provider Nurse Practitioner | DX: M19.071 Primary osteoarthritis, right ankle and foot (principal); M77.31 Calcaneal spur, right foot; Z87.81 Personal history of (healed) traumatic fracture | CPT/HCPCS: 73610 ==

== ENCOUNTER 2024-12-28 07:19 | Outpatient (CLI) | payer MEDICAID, SELFPAY ==
--- NOTE | 2024-12-28 08:00 | MRR_ITS ---
PROCEDURE INFORMATION: Exam: MR Right Lower Extremity Joint Without Contrast; Ankle Exam date and time: 12/28/2024 8:13 AM Age: 54 years old Clinical indication: Right ankle pain and instability for 5 months no known injury; Additional info: Peroneal tendon TECHNIQUE: Imaging protocol: Magnetic resonance imaging of the right lower extremity without contrast. Exam focused on the ankle. 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 Probable osteochondral lesion in the lateral talar dome measuring 7 mm. LIGAMENTS: Distal tibiofibular syndesmosis: The anterior and posterior tibiofibular ligaments are intact. Anterior talofibular ligament: Sprain of the anterior talofibular ligament. Posterior talofibular ligament: The posterior talofibular ligament is intact. Calcaneofibular ligament: The calcaneofibular ligament is intact. Deltoid ligament complex: The deltoid ligament is intact. Lisfranc ligament: The Lisfranc ligament is intact. TENDONS: Flexor tendons of foot: The flexor digitorum longus tendon is intact. Tibialis posterior tendon: The posterior tibialis tendon is intact. Peroneal tendons: Split tear of the peroneus brevis. Mild tendinosis of the peroneus longus tendon. Extensor tendons of foot: The visualized extensor tendons are intact. Tibialis anterior tendon: The anterior tibialis tendon is intact. Achilles tendon: Mild Achilles tendinosis. Tarsal canal (Sinus tarsi): There is mild edema in the sinus tarsi. Tarsal tunnel: The tarsal tunnel is clear. Soft tissues: No significant subcutaneous soft tissue swelling. Plantar fascia: The plantar fascia is thickened measuring up to 6.5 mm; query plantar fasciitis. MR/MR ankle RT wo con* [id number] IMPRESSION: 1. Split tear of the peroneus brevis. 2. Mild tendinosis of the peroneus longus tendon. 3. Sprain of the anterior talofibular ligament. 4. Mild Achilles tendinosis. 5. The plantar fascia is thickened measuring up to 6.5 mm; query plantar fasciitis. 6. Mild edema in the sinus tarsi. 7. 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 8. Probable osteochondral lesion in the lateral talar dome measuring 7 mm.
== END 2024-12-28 07:20 | disposition home or self-care (01) ==
PROVIDERS: PCP Nurse Practitioner; Visit Provider Podiatrist Foot & Ankle Surgery
DX: M76.71 Peroneal tendinitis, right leg (principal); S86.311A Strain of muscle(s) and tendon(s) of peroneal muscle group at lower leg level, right leg, initial encounter; M19.071 Primary osteoarthritis, right ankle and foot; M67.873 Other specified disorders of tendon, right ankle and foot; X58.XXXA Exposure to other specified factors, initial encounter
CPT/HCPCS: 73721

== ENCOUNTER → 2025-02-05 10:25 | Outpatient (BNVA) | payer OTHER, MEDICAID, SELFPAY | PROVIDERS: PCP Nurse Practitioner; Visit Provider Nurse Practitioner | DX: I10 Essential (primary) hypertension (principal); E78.2 Mixed hyperlipidemia | CPT/HCPCS: 80053; 80061 ==

== ENCOUNTER 2025-03-05 06:45 | Outpatient (CLI) | payer OTHER, MEDICAID, SELFPAY ==
--- NOTE | 2025-03-05 07:15 | MR_ITS ---
WS: [id number] MRI RIGHT SHOULDER NONCONTRAST TECHNIQUE: Sagittal T2, coronal T1, T2 and proton density imaging. Axial gradient PDE imaging. CLINICAL INFORMATION: impingement of shoulder COMPARISON: None. FINDINGS: Moderate to advanced arthritis AC joint with fluid and edema. Downsloping acromion with subacromial spurring. Impingement on the rotator cuff. Narrowing of the subacromial space. Small amount of subacromial subdeltoid fluid. Mild tendinopathy distal supraspinatus. Infraspinatus appears intact. Teres minor appears intact. Tendinopathy subscapularis tendon. Biceps tendon appears intact within the bicipital groove. Tendinopathy intra-articular biceps tendon. Moderate degenerative narrowing glenohumeral articulation. Degenerative fraying of the glenoid labrum. MR/MR shoulder RT wo con* [id number] IMPRESSION: 1. Moderate to advanced degenerative arthritis AC joint with narrowing of the subacromial space. 2. Tendinopathy supraspinatus. Supraspinatus and infraspinatus appear intact. 3. Tendinopathy subscapularis tendon. 4. Biceps tendon appears intact within the bicipital groove. Tendinopathy intr a-articular biceps tendon.
== END 2025-03-05 06:46 | disposition home or self-care (01) ==
LOC: RAD 06:46
PROVIDERS: PCP Nurse Practitioner; Visit Provider Physician Assistant
DX: M19.011 Primary osteoarthritis, right shoulder (principal); M75.41 Impingement syndrome of right shoulder
CPT/HCPCS: 73221

== ENCOUNTER → 2025-04-17 08:02 | Outpatient (BNVA) | payer OTHER, MEDICAID, SELFPAY | PROVIDERS: PCP Nurse Practitioner; Visit Provider Orthopaedic Surgery | DX: M50.322 Other cervical disc degeneration at C5-C6 level (principal); M50.323 Other cervical disc degeneration at C6-C7 level | CPT/HCPCS: 72050 ==

== ENCOUNTER → 2025-04-30 09:29 | Outpatient (BNVA) | payer OTHER, MEDICAID, SELFPAY | PROVIDERS: PCP Nurse Practitioner; Visit Provider Nurse Practitioner | DX: E55.9 Vitamin D deficiency, unspecified (principal); E78.2 Mixed hyperlipidemia; E13.22 Other specified diabetes mellitus with diabetic chronic kidney disease; I12.9 Hypertensive chronic kidney disease with stage 1 through stage 4 chronic kidney disease, or unspecified chronic kidney disease; N18.2 Chronic kidney disease, stage 2 (mild) | CPT/HCPCS: 80053; 81000; 82306; 82607; 84443; 85025 ==